=== PATIENT | male | born 1960 | race Caucasian/White ===

== ENCOUNTER → 2018-04-04 09:06 | Outpatient (CLI) | payer BC, SELFPAY ==
[2018-04-04 12:10] LABS: Absolute Lymphocyte Count 2.37 X10^3/ul (0.83-4.51); Basophil# 0.03 X10^3/uL; Basophil% 0.4 % (0-1); Eosinophil# 0.14 X10^3/uL; Eosinophils% 1.9 % (0-5); Hematocrit 46.3 % (40-54); Hemoglobin 15.9 g/dl (13.0-16.5); Lymphocyte # 2.37 X10^3/ul (4.0); Lymphocyte % 32.6 % (19-41); Mean Corp Hgb Conc 34.3 g/gl (32-36); Mean Corpuscular Hgb 31.1 pg (27.0-32.0); Mean Corpuscular Volume 90.4 fL (80-94); Mean Platelet Vol. 11.2 fl (6.2-12.0); Monocyte# 0.75 X10^3/uL; Monocyte% 10.3 % (0-10); Neutrophil # 3.97 X10^3/uL (2.7-7.7); Neutrophil % 54.7 % (47-70); Platelet Count 211 K/mm3 (150-450); RBC Distribution Width CV 13.4 % (11.6-14.6); RBC Distribution Width SD 44.3 fl (35.1-43.9); Red Blood Count 5.12 M/mm3 (4.6-6.2); White Blood Count 7.3 K/mm3 (4.4-11.0)
[2018-04-04 12:15] LABS: POSITIVE COUNT NO; POSITIVE DIFFERENTIAL NO; POSITIVE MORPHOLOGY NO
[2018-04-04 12:33] LABS: AST(SGOT) 23 U/L (15-37); Alanine Aminotransfer ALT/SGPT 41 U/L (16-61); Albumin, Serum 3.6 g/dL (3.2-5.0); Alkaline Phosphatase 66 U/L (45-117); Anion Gap 10 (5-15); BUN 14 mg/dL (7-18); BUN/Creat Ratio 12.6 RATIO (10-20); Calcium,Total 8.1 mg/dL (8.5-10.1); Chloride 108 mmol/L (98-107); Cholesterol 190 mg/dL (200); Creatinine, Serum 1.11 mg/dL (0.70-1.30); EST Glomerular Filtration Rate 72 mL/min (>60); Est Glom Filt Rate - Afr Amer 87 mL/min (>60); Globulin 3.7 g/dL (2.2-4.2); Glucose 96 mg/dL (74-106); High Density Lipoprotein 46 mg/dL; PSA,Total - Annual Screen 3.98 ng/mL (0.00-4.00); Potassium 4.2 mmol/L (3.5-5.1); Protein, Total 7.3 g/dL (6.4-8.2); Sodium Level 140 mmol/L (136-145); Triglycerides 127 mg/dL; Very Low Density Lipoprotein 25 mg/dL (5-40)
== END ==
PROVIDERS: Family Provider Family Medicine; PCP Family Medicine; Visit Provider Family Medicine
DX: Z00.00 Encounter for general adult medical examination without abnormal findings (principal); E66.9 Obesity, unspecified; R00.9 Unspecified abnormalities of heart beat; R03.0 Elevated blood-pressure reading, without diagnosis of hypertension
CPT/HCPCS: 36415; 80053; 80061; 84153; 85025; G0103

== ENCOUNTER 2018-04-25 06:55 | Day surgery (SDC) | payer BC, SELFPAY ==
--- NOTE | 2018-04-25 | COLBX_PTH ---
PATIENT: GUTIERREZ COLON LOC: EN U#:[id number] AGE/SX: 58/M ROOM: RE04/25/[address]: Dr. Argenis Ayers MD : [id number] BED: DIS: 04/25/2018 SPEC #: [id number] RECD: 04/25/18 11:33 STATUS: JAZMINE STEPHANY #: [id number] JANE: 04/25/18 00:[address]: Argenis Ayers DEPT: SURGICAL PATHOLOGY RECD BY: Daryon Turcios ENTERED: 04/28/18 11:33 SP TYPE: COLON BX OT DR: Dr. Atilio Morales MD Tissues: A - Transverse colon B - Sigmoid colon biopsy Procedures: Surgery Specimen Level IV HEADER OPERATION: Colonoscopy with polypectomy PRE-OP DIAGNOSIS: Screening TISSUE SUBMITTED: A ? Distal transverse polyp, B ? Sigmoid polyp biopsy MICROSCOPIC DIAGNOSIS A. Distal transverse colon polyp, biopsy: Tubular adenoma. B. Sigmoid colon polyp, biopsy: Hyperplastic polyp. AM:suzan 04/29/18 MICROSCOPIC DESCRIPTION Slides are reviewed. GROSS DESCRIPTION A - Received in fixative is one container labeled with the patient's name and designated transverse colon biopsy. The specimen consists of one irregular fragment of light hay soft tissue that measures 0.3 x 0.3 x 0.1 cm. The specimen is totally submitted in one cassette. B - Received in fixative is one container labeled with the patient's name and designated sigmoid colon biopsy. The specimen consists of one irregular fragment of light hay soft tissue that measures 0.3 x 0.3 x 0.1 cm. The specimen is totally submitted in one cassette. / SJ:suzan 04/25/18 TC:5 CPT: 68180 x2
--- NOTE | 2018-04-25 06:55 | DT_ITS ---
This patient was seen during an EMR downtime April 25, 2018 - May 02, 2018. This patient may have a combination of paper and electronic documentation or all paper documentation. All documentation is viewable within the e-chart portion of [facility] for each patient visit.
--- NOTE | 2018-05-03 08:19 | PCM.OPRPT ---
Report of Operation Date of Procedure: 04/25/18 Pre-Operative Diagnosis: Screening for colon cancer Post-Operative Diagnosis: Distal transverse polyp and sigmoid polyp Surgery/Procedure Performed:: Colonoscopy with snare polypectomy Type of Anesthesia:: MAC Anesthesiologist: Xavier Valdez Specimen's removed: 1. Distal transverse polyp, 2. Sigmoid polyp Estimated Blood Loss (mL): Minimal Description of Procedure: Procedure: Colonoscopy After reviewing the risks benefits, the patient was deemed in satisfactory condition to undergo procedure. After obtaining informed consent, the scope was passed under direct visualization. Throughout the procedure, the patient's blood pressure pulse and position saturations were monitored continuously anesthesia. The colonoscope was introduced through the anus and advanced to the cecum, identified by the appendiceal orifice, IC valve and transillumination. The colonoscopy was performed without difficulty. The patient tolerated procedure well. Quality of bowel prep was good. Findings: The perianal and digital rectal exam were normal. Small distal transverse and sigmoid polyps were found. The distal transverse polyp was removed with snare polypectomy and the sigmoid polyps removed with cold forceps. Otherwise the colon (entire examined portion) appeared normal. Retroflexed view of the distal rectum and anal verge was normal and showed no anal or rectal abnormalities Impression: 1. Small distal transverse and sigmoid polyps. Biopsied 2. The distal rectal and anal verge were normal on retroflexed view. Recommendations: Await biopsies Repeat colonoscopy in 3-5 years for screening purposes depending on biopsies - Complications none
== END 2018-04-25 09:15 | disposition home or self-care (01) ==
PROVIDERS: Family Provider Family Medicine; PCP Family Medicine; Visit Provider Surgery
PROC: 0DJD8ZZ Inspection of Lower Intestinal Tract, Via Natural or Artificial Opening Endoscopic (ICD-10-PCS; CPT 45378; principal; 2018-04-25 07:55)
DX: Z12.11 Encounter for screening for malignant neoplasm of colon (principal); D12.3 Benign neoplasm of transverse colon; K63.5 Polyp of colon; M19.042 Primary osteoarthritis, left hand; M19.041 Primary osteoarthritis, right hand; Z87.891 Personal history of nicotine dependence
CPT/HCPCS: 45380; 88305; J7120

== ENCOUNTER 2018-12-31 11:43 | Inpatient (IN) | payer OTHER, SELFPAY ==
[2018-12-31] VITALS (25 sets, daily range): BP systolic 109–204; BP diastolic 65–107; PULSE 55–82; RESP 10–21; TEMP 36.3–36.8; O2SAT 94–98; BMI 34.4; BMI 33.7
--- NOTE | 2018-12-31 11:58 | EKG12_ITS ---
Test Reason : POST PCI Blood Pressure : / mmHG Vent. Rate : 077 BPM Atrial Rate : 077 BPM P-R Int : 172 ms QRS Dur : 090 ms QT Int : 394 ms P-R-T Axes : 052 030 031 degrees QTc Int : 445 ms Normal sinus rhythm Nonspecific ST abnormality Abnormal ECG When compared with ECG of 31-DEC-2018 12:43, MANUAL COMPARISON REQUIRED, DATA IS UNCONFIRMED Confirmed by SANDER LEMA, SEVERINO ([id number]), editorial assistant ETTA MORALEZ ([id number]) on 01/05/2019 1:06:27 PM Referred By: Pastora Pascal Confirmed By:SEVERINO BOUCHER MD
--- NOTE | 2018-12-31 11:58 | RAD_ITS ---
STUDY: X-RAY CHEST REASON FOR EXAM: Male, 58 years old. Chest pain TECHNIQUE: Single frontal view COMPARISON: None. FINDINGS: The lungs are clear and expanded. There is no demonstrated pleural abnormality. Cardiomegaly. Normal mediastinum and jose m. Normal visualized pulmonary arteries. Normal visualized aortic arch and descending thoracic aorta. Degenerative changes of the thoracic spine. Normal visualized ribs, clavicles, and shoulders. There is no demonstrated abnormality of the visualized soft tissue structures of the upper abdomen. RAD/Chest 1 View (Portable) IMPRESSION: Cardiomegaly. Electronically Signed: Emmanuel Younger DO at 12:30 EST Tel [phone], Service support ,
[2018-12-31] MEDS: Aspirin 81 MG TAB.CHEW 324 MG PO (12:15)
[2018-12-31 12:27] LABS: Absolute Lymphocyte Count 1.86 X10^3/ul (0.83-4.51); Basophil# 0.02 X10^3/uL; Basophil% 0.3 % (0-1); Eosinophil# 0.07 X10^3/uL; Eosinophils% 1.1 % (0-5); Hematocrit 49.7 % (40-54); Hemoglobin 16.8 g/dl (13.0-16.5); Lymphocyte # 1.86 X10^3/ul (4.0); Lymphocyte % 28.7 % (19-41); Mean Corp Hgb Conc 33.8 g/gl (32-36); Mean Corpuscular Hgb 30.6 pg (27.0-32.0); Mean Corpuscular Volume 90.5 fL (80-94); Mean Platelet Vol. 10.4 fl (6.2-12.0); Monocyte# 0.52 X10^3/uL; Neutrophil # 3.97 X10^3/uL (2.7-7.7); Neutrophil % 61.4 % (47-70); Platelet Count 208 K/mm3 (150-450); RBC Distribution Width CV 12.9 % (11.6-14.6); RBC Distribution Width SD 42.7 fl (35.1-43.9); Red Blood Count 5.49 M/mm3 (4.6-6.2); White Blood Count 6.5 K/mm3 (4.4-11.0)
[2018-12-31 12:28] LABS: POSITIVE COUNT NO; POSITIVE DIFFERENTIAL NO; POSITIVE MORPHOLOGY NO
[2018-12-31 12:36] LABS: Anion Gap 7 (5-15); BUN 18 mg/dL (7-18); BUN/Creat Ratio 16.7 RATIO (10-20); Calcium,Total 8.5 mg/dL (8.5-10.1); Chloride 105 mmol/L (98-107); Creatinine, Serum 1.08 mg/dL (0.70-1.30); EST Glomerular Filtration Rate 74 mL/min (>60); Est Glom Filt Rate - Afr Amer 90 mL/min (>60); Glucose 149 mg/dL (74-106); Potassium 4.2 mmol/L (3.5-5.1); Sodium Level 138 mmol/L (136-145)
--- NOTE | 2018-12-31 12:37 | ED.VISSUMM ---
- ER Visit Summary Date of Service: 12/31/18 Chief Complaint: Chest pain History of Present Illness: The patient is a 58 M who presents with chest pain. Started last night and was worse this morning. He describes an achiness in his left chest. It did get worse with exertion this morning. He denies shortness of breath. He did have some nausea. This pain does radiate to the left arm. He denies any leg swelling he has no history of cardiac issues in the past. He had a stress test many years ago. He has hypertension but no other cardiac risk factors. He is unsure of his family history because he is adopted. Physical Examination: Vital signs reviewed. HEENT exam unremarkable. Heart is regular rate and rhythm without murmurs. Lungs are clear to auscultation. Abdomen is soft and nontender. Extremities reveal no edema. Peripheral pulses are equal. Skin exam normal. Neurologic exam normal. Test Results: First EKG showed a sinus rhythm with rate of 73. He had mild ST depressions inferior laterally. Hemoglobin 16.8. Glucose 148. Troponin 0 0.058. Chest x-ray reveals cardiomegaly Emergency Department Course and Treatment: The patient was given some lingual nitroglycerin as well as aspirin. His pain was improved with the nitroglycerin but it returned and was worse. A repeat EKG reveals more ST depressions inferior laterally with some slight elevation of aVR. At this point I started the patient on a nitroglycerin drip. I discussed with the [employer] rep, Dr. bell. He came to the emergency department and evaluated the patient and EKG. He would like to take the patient to the Loss Prevention Operations Manager for intervention. Patient was given IV bolus of heparin. He held the Brilinta. The patient was admitted to the hospitalist, likely to the ICU because he will likely need a stent placed. Treatment Plan: [] Disposition: Admit Impression: NSTEMI, chest pain, elevated troponin This note was generated with [employer] dictation software. It may contain incorrect words, spelling, and punctuation that were not noted in review of the chart prior to signing ED Disposition - Plan for ED Patient: Referrals: Atilio Morales MD [Primary Care Provider] -
--- NOTE | 2018-12-31 12:39 | EKG12_ITS ---
Test Reason : CP Blood Pressure : / mmHG Vent. Rate : 057 BPM Atrial Rate : 057 BPM P-R Int : 168 ms QRS Dur : 092 ms QT Int : 410 ms P-R-T Axes : 051 012 -20 degrees QTc Int : 399 ms Sinus bradycardia Marked ST abnormality, possible inferior subendocardial injury Marked ST abnormality, possible anterior subendocardial injury Abnormal ECG Confirmed by SANDER LEMA, SEVERINO ([id number]), health editor ETTA MORALEZ ([id number]) on 01/03/2019 8:27:08 AM Referred By: Pastora Pascal Confirmed By:SEVERINO BOUCHER MD
[2018-12-31] MEDS: Morphine 4 MG/ML Syringe IV (12:43)
[2018-12-31] MEDS: Ondansetron 4 MG/2 ML Vial IV (12:43)
[2018-12-31] MEDS: Heparin Injection (Vial) 5,000 UNIT/ML VIAL 4000 UNIT IV (12:54)
--- NOTE | 2018-12-31 14:55 | HP.PCM_ITS ---
Problem List (1) Multivessel coronary artery disease Status: Acute (2) Unstable angina Status: Acute History of Present Illness Date of Admission: 12/31/18 Chief Complaint: Chest pain. The patient is a 58 year old M with no significant past medical history presented to the emergency room because of chest pain. Symptoms started last night around 9 PM after he ate his dinner with left-sided chest pain, above his left breast, dull aching pain, 8 out of 10 in severity, radiates to the left arm, aggravated by movement and without relieving factors. He denied associated shortness of breath, dizziness, diaphoresis, nausea or vomiting. Last night, he was able to sleep but he woke up this morning with more severe pain, on the same side, dull aching pain, 10 out of 10 in severity, more prolonged than last night and associated with nausea, relieved with nitroglycerin that he received in the ED and without aggravating factor. He came to the emergency room, his pain got worse and he was diaphoretic, nauseous and he vomited once. In the emergency department, initial blood pressure was elevated, other vital signs were stable. Routine blood work was remarkable for glucose of 149, otherwise normal. Chest x-ray revealed myocardial, otherwise normal. Initial EKG in the ER revealed normal sinus rhythm with ST segment depression in leads V3, V4, V5 and V6. Repeat EKG after patient reported worsening chest pain revealed sinus bradycardia, and T wave inversion in leads II, III, V3, V4, V5 and V6. STEMI alert called and patient was taken for emergent cardiac catheterization with PCI/LEXY. He was found to have multivessel disease versus left main coronary artery disease. He is being admitted for unstable angina, found to have multivessel coronary artery disease. Past Medical History Allergies No Known Allergies Allergy (Verified 04/20/18 11:26) Home Medications: Ambulatory Orders Medication Instructions Recorded NK 12/31/18 Surgical History: herniorrhaphy Psychiatric History: No pertinent psych hx Lives: Spouse/ Significant Other Smoking Status: Never smoker Alcohol: Occasional Drugs: None - *Family History Maternal History Items: - - He is adopted, unknown family history. Paternal History Items: - - He is adopted, unknown family history. Review of Systems Constitutional: Denies: Anorexia, Chills, Fever, Weakness Eyes: Denies: Blurred vision, Double vision, Drainage, Redness HEENT: Denies: Difficulty Hearing, Ear Pain, Eye Pain, Nasal Congestion, Sore Throat Cardiovascular: Reports: Chest Pain. Denies: Chest Tightness, Edema, Heaviness, Light Headedness, Palpitations, Syncope Respiratory: Denies: Cough, Pleuritic Pain, Shortness of Breath, Sputum production, Wheezing Gastrointestinal: Reports: Nausea, Vomiting. Denies: Abdominal Pain, Constipation, Diarrhea Genitourinary: Denies: Dysuria, Frequency, Hematuria Musculoskeletal: Denies: Arm Pain, Back Pain, Foot Pain Skin: Denies: Dryness, Rash Neurological: Denies: Balance problems, Double vision, Change in Speech, Slurred speech, Confusion, Headaches, Incoordination Psychiatric: Denies: Anxiety, Depression VTE Information - Inpt Only VTE Present on Admission: No VTE Mechan Device Prophylaxis: None VTE Pharm Prophylaxis ordered?: No Patient Problems: Active and Suspected Problems Hypertensive emergency (Acute) Multivessel coronary artery disease (Acute) Unstable angina (Acute) - Physical Exam General: Alert, Oriented x3, Cooperative, No apparent distress HEENT: Atraumatic, PERRLA, EOMI, Normocephalic Oral: Moist Mucosa, No Gingival or Mucosal Lesions/ Ulcerations Neck: Supple, No JVD, Negative Carotid Bruits, Trachea Midline, Thyroid Normal Size and Texture Lungs: Clear to auscultation, Normal air movement, No rhonchi, No wheeze, No rales Cardiovascular: Regular rate, Regular Rhythm, Normal S1, Normal S2, No murmurs Abdomen: Bowel Sounds Present, Soft, Non Tender, Non-Distended, No Hepato- splenomegaly Extremities: No clubbing, No cyanosis, No edema Skin: No rashes, No breakdown Lymphatic: No Cervical, Supraclavicular, or Inguinal Adenopathy Neurological: Cranial nerves II-XII grossly intact, Motor Exam 5/5 strength throughout Psych/Mental Status: Normal Affect, Appropriate, Alert and oriented to time, place, person, mood and affect Vital Signs Temp Pulse Resp BP Pulse Ox 97.4 F L 66 10 L 166/95 H 98 12/31/18 11:44 12/31/18 13:00 12/31/18 13:00 12/31/18 13:00 12/31/18 13:00 Oxygen Flow Rate (L/min) 2 Oxygen Delivery Method Nasal Cannula Weight: 240 lb 8.389 oz Body Mass Index (BMI) 34.4 Laboratory Tests Past 24 Hrs 12/31/18 12/31/18 12:05 12:05 WBC 6.5 RBC 5.49 Hgb 16.8 H Hct 49.7 MCV 90.5 MCH 30.6 MCHC 33.8 RDW 12.9 RDW Differential 42.7 Plt Count 208 MPV 10.4 Immature Gran % (Auto) 0.500 Neut % (Auto) 61.4 Lymph % (Auto) 28.7 Mcmullen % (Auto) 8.0 Eos % (Auto) 1.1 Baso % (Auto) 0.3 Absolute Neuts (auto) 4.0 Absolute Lymphs (auto) 1.86 Total Counted Not Reportable Sodium 138 Potassium 4.2 Chloride 105 Carbon Dioxide 26.0 Anion Gap 7 BUN 18 Creatinine 1.08 Estim Creat Clear Calc 75.10 Est GFR (MDRD) Af Amer 90 Est GFR (MDRD) Non-Af 74 BUN/Creatinine Ratio 16.7 Glucose 149 H Calcium 8.5 Troponin I 0.058 H Clinical Impression(s) from Imaging Studies Chest X-Ray 12/31/18 11:58 IMPRESSION: Cardiomegaly. Electronically Signed: Emmanuel Younger DO at 12:30 EST Tel [phone], Service support , Assessment/Plan All Active Problems Hypertensive emergency (Acute) Multivessel coronary artery disease (Acute) Unstable angina (Acute) This is a 58 years old male patient with no significant past medical history presented to the emergency room because of chest pain, found to have EKG changes and borderline elevated troponin consistent with unstable angina, underwent emergent cardiac catheterization and was found to have multivessel disease, underwent PCI/LEXY as mentioned below. #1 unstable angina/acute coronary syndrome/multivessel disease: EKG reviewed as above, troponin is borderline elevated. Status post emergent cardiac catheterization, found to have 99% occlusion of the first diagonal branch, 80% occlusion of the proximal mid LAD, had drug eluting stent to diagonal branch, drug-eluting stent to LAD. Also, found to have 80% lesion in the RCA, planned for staged intervention. At this time, blood pressure improved. Other vital signs are stable. Plan: Admit to ICU, cardiac monitoring, serial cardiac enzymes, repeat EKG tomorrow morning, start baby aspirin, Lipitor, Coreg, Conchis linta twice daily, cardiology consult, IV fluids, repeat BMP and CBC tomorrow morning. #2 hypertensive emergency: Upon arrival to ER, blood pressure was highly elevated, it was 204/107 with evidence of endorgan damage which is the unstable angina and this is consistent with hypertensive emergency. Patient was started on IV nitroglycerin drip in the ED, blood pressure improved. Plan to monitor, start Coreg twice daily. #3 hyperglycemia: Blood sugar is 149, no history of diabetes. Plan for lipid profile, hemoglobin A 1C. #4 DVT prophylaxis: SCDs. Code Visit Inpatient E&M: 72999 Init Hosp L3
--- NOTE | 2018-12-31 15:17 | PCM.CONS.C ---
Reason for Consult Date of Consultation: 12/31/18 History of Present Illness: The patient is a 58 year old M with no significant past medical history. According to him, he started having anterior chest pain last night. It was unremitting. He went to sleep with it. When he woke up he started having chest pain again. It really became worse this morning and he decided to come to the emergency room. In the emergency room, his pain got worse. He got diaphoretic and nauseous. He vomited once. Patient was given morphine sublingual nitroglycerin and was started on nitro infusion. However his pain failed to improve. Patient denies any previous history of angina pectoris either at rest or with exertion. Denies any shortness of breath. No palpitations. No orthopnea or PND. No syncope or presyncope. [] Patient does not know anything about his family history as he was adopted Past Medical History Allergies/Adverse Reactions: Allergies No Known Allergies Allergy (Verified 04/20/18 11:26) Home Medications: Ambulatory Orders Medication Instructions Recorded NK 12/31/18 Smoking Status: Never smoker Review of Systems - Review of Systems General: Denies: Fever, Chills HEENT: Denies: Head Aches Cardiovascular: Reports: Chest Discomfort, Chest Discomfort at Rest. Denies: Orthopnea, PND, Palpitations, Dizziness, Near Syncope, Syncope Respiratory: Denies: Cough, Hemoptysis Gastrointestinal: Reports: Nausea, Emesis. Denies: Abdominal Discomfort, Jaundice, Hematemesis, Melena Neurological: Denies: History of TIA, History of CVA Endocrine: Denies: Heat Intolerance, Cold Intolerance Hematologic/ Lymphatic: Denies: Easy Brusing, Easy Bleeding Subjectve: Appears acutely distressed Objective: Vital Signs Temp Pulse Resp BP Pulse Ox 97.4 F L 66 10 L 166/95 H 98 12/31/18 11:44 12/31/18 13:00 12/31/18 13:00 12/31/18 13:00 12/31/18 13:00 Oxygen Flow Rate (L/min) 2 Oxygen Delivery Method Nasal Cannula Weight: 109.1 kg Body Mass Index (BMI) 34.4 General: Awake, Alert, Oriented x 3, Cooperative, In Acute Distress HEENT: Atraumatic, Normocephalic Oral: Moist Mucosa Neck: Supple, No JVD Lungs: Clear to auscultation Cardiovascular: Regular Rhythm, Normal S1, Normal S2 Abdomen: Bowel Sounds Present, Soft Extremities: No edema Neurological: No Focal Motor or Sensory Deficit Psych/Mental Status: Appropriate 12/31/18 12:05: WBC 6.5, RBC 5.49, Hgb 16.8 H, Hct 49.7, MCV 90.5, MCH 30.6, MCHC 33.8, RDW 12.9, RDW Differential 42.7, Plt Count 208, MPV 10.4, Immature Gran % (Auto) 0.500, Neut % (Auto) 61.4, Lymph % (Auto) 28.7, Potter % (Auto) 8.0, Eos % (Auto) 1.1, Baso % (Auto) 0.3, Absolute Neuts (auto) 4.0, Total Counted Not Reportable 12/31/18 12:05: Sodium 138, Potassium 4.2, Chloride 105, Carbon Dioxide 26.0, Anion Gap 7, BUN 18, Creatinine 1.08, Est GFR (MDRD) Af Amer 90, Est GFR (MDRD) Non-Af 74, BUN/Creatinine Ratio 16.7, Glucose 149 H, Calcium 8.5, Troponin I 0.058 H Rhythm: Normal sinus rhythm EKG: EKG showed normal sinus rhythm. ST depressions were noted in inferior and anterior leads consistent with ischemia. ST elevation in aVR. ECHO: Stress Test: Cardiac Cath: PCI: CT Surgery: Holter monitor: EPS: PPM: CXR: Chest CT Scan: Assessment/Plan 1. Unstable angina pectoris/acute coronary syndrome. The patient had diffuse ST depressions with ST elevation in aVR. This was concerning for multivessel disease versus left main. As his symptoms were unremitting despite medications, it was recommended that he undergo emergent cardiac catheterization with coronary angiography and possible revascularization. Risks benefits were explained to him. He understood those and wished to proceed. Coronary angiography revealed severe triple-vessel disease. The culprit vessel was identified as the first diagonal branch which had about 99% occlusion with TIARA I flow. The prox/mid LAD was also noted to have about 80% occlusion. Emergent revascularization was performed to the diagonal branch with placement of a2.25.25 x 18 mm resolute drug-eluting stent. Postdilated using a 2.5 mm balloon. The LAD lesion was treated with a 2.5 x 22 mm resolute drug-eluting stent. Excellent results were noted. Patient's symptoms promptly resolved. Patient also had about 95% distal left circumflex disease. This was treated using a 2.25 x 14 mm resolute drug-eluting stent. 2. Coronary artery disease. See #1 above. Started on aspirin and loaded with ticagrelor. Continue. Start on low-dose beta-blockers. Nitrates. Patient has about 80% lesion in his right coronary artery. Plan for staged intervention. 3. Check lipid profile. Start on statins. 4. Overall LV systolic function is estimated to be about 35%. Will check an echocardiogram. Start on SHO inhibitors.
[2018-12-31 16:05] LABS: Thyroid Stim Hormone (TSH) 1.19 uIU/mL (0.358-3.74)
[2018-12-31] MEDS: 0.9% Normal Saline 1,000 ML 75 ML IV (16:13)
[2018-12-31 16:20] LABS: Hemoglobin A1c 5.9 % (4.2-6.3)
--- NOTE | 2018-12-31 16:45 | EKG12_ITS ---
Test Reason : CP Blood Pressure : / mmHG Vent. Rate : 073 BPM Atrial Rate : 073 BPM P-R Int : 182 ms QRS Dur : 096 ms QT Int : 392 ms P-R-T Axes : 050 021 -12 degrees QTc Int : 431 ms Normal sinus rhythm ST & T wave abnormality, consider inferior ischemia Abnormal ECG Confirmed by SANDER LEMA, SEVERINO ([id number]), editor in chief newspaper ETTA MORALEZ ([id number]) on 01/03/2019 8:26:49 AM Referred By: Pastora Pascal Confirmed By:SEVERINO BOUCHER MD
[2018-12-31 16:57] LABS: ACT Activated Clotting Time 164 sec (74-137)
[2018-12-31 16:57] LABS: ACT Activated Clotting Time 357 sec (74-137)
--- NOTE | 2018-12-31 17:23 | CL.I_ITS ---
Patient Name: GUTIERREZ COLON Study Date: 12/31/2018 Performing: Pastora Pascal MD Ht: 70.08 inches 178 cm : 1960 Wt: 240.3 lbs 109 kg Age: 58 Gender: male BSA: 2.26 PROCEDURE(S) PERFORMED [id number]-DVI/COR/LV [id number] W OR WO PTCA, SINGLE CORONARY ARTERY [id number] W OR WO PTCA, EACH ADD'L ARTERY, SAME MAJOR [id number] W OR WO PTCA, SINGLE CORONARY ARTERY CLINICAL PROFILE AND CO-MORBIDITIES Heart Failure: None Angina Classification Anginal Classification w/in 2 Weeks: CCS IV CAD Presentations: Unstable angina. CONCLUSIONS Subtotal Prox D1 with TIARA I flow 80% Prox LAD 50% ostial LCX, 95% distal LCX 90% prox OM1. Small caliber vessel 80% Prox RCA LVEF 35-40% Successful PTCA/LEXY Prox D1 using Resolute Integrity 2.25x18 mm, post-dilated using 2.5 mm balloon Successful LEXY distal LCX using Resolute Integrity 2.25x14 mm RECOMMENDATIONS ASA Indefinitley Brilinta for at least 12 months Staged intervention to Prox RCA DESCRIPTION OF PROCEDURE The patient arrived to the procedure lab. The risks and benefits of the procedure as well as a full d escription of our services here and lack of surgical backup were fully explained to the patient and/o r their significant other prior to the catheterization. The Timeout was completed, verifying the ela ect patient and procedure. The patient's procedural site was prepped and draped in the usual fashion. Local anesthetic was given subcutaneously to right radial region with Lidocaine 2%. Using a modified Seldinger technique, arterial access was obtained via the right radial artery, a 6Fr sheath was inse rted.. Left Coronary Artery selective angiography was performed in multiple views using a 5 Fr. 4.0 [place] catheter. Right Coronary Artery selective angiography was then performed in multiple views usin g a 5 Fr. 3DRC (Bebeto) catheter. Left Ventriculography was performed in CHO projection using a 5 F r. Pigtail catheter. LV to AO pullback pressures were then recorded xb 3 Guide catheter was inserted and engaged into the RCA. runthrough Guide wire was advanced to the RCA. xb 2.5 Guide catheter was inserted and engaged into the RCA. emerge 2.00 x 15 Balloon cathet er was advanced across lesion in the first diagonal, ostial. PTCA balloon inflated at 6 atms for 10 s ecs. PTCA balloon inflated at 6 atms for 4 secs. PTCA balloon inflated at 6 atms for 14 secs. Angiogr am performed post balloon dilatation. runthrough Guide wire was advanced to the LAD. resolute 2.25x 1 8 Drug Eluting stent was advanced across the lesion in the first diagonal, ostial. Angiogram performe d post stent deployment. nc Balloon catheter was inserted post stent. Angiogram performed post balloo n dilatation. emerge push 1.5 x 15 Balloon catheter was advanced across lesion in the LAD, mid. PTCA balloon inflated at 14 atms for 23 secs. PTCA balloon inflated at 14 atms for 12 secs. PTCA balloon i nflated at 14 atms for 11 secs. emerge 2.5 x 15 Balloon catheter was advanced across lesion in the LAD, mid. PTCA balloon inflated at 6 atms for 24 secs. resolute 2.5 x 22 Drug Eluting s tent was advanced across the lesion in the LAD, mid. Angiogram performed post stent deployment. nc em erge 2.5 x 15 Balloon catheter was inserted post stent to the mid lad Angiogram performed post balloo n dilatation. runthrough Guide wire was repositioned to the Circumflex resolute 2.25 x 14 Drug Elutin g stent was advanced across the lesion in the circumflex, distal. nc emerge 2.25 x 12 Balloon cathete r was inserted post stent distal circ Angiogram performed post balloon dilatation. The arterial she ath was pulled and a TR Band was applied for hemostasis CORONARY ANGIOGRAPHY DOMINANCE: Right Dominant LEFT HEART ASSESSMENT Left Ventricular Ejection Fraction: by LV Gram 35 % LVEDP: 17 mmHg Anterior Hypokinesis - Severe LEFT MAIN: Calcified but no significant lesions LEFT ANTERIOR DECENDING ARTERY: 80% Mid. Prox D1 subtotal with TIARA I flow CIRCUMFLEX ARTERY: 50% Prox. 95% distal. Prox OM1 small diameter 2 mm vessel. 90% Prox RIGHT CORONARY ARTERY: 80% Prox INTERVENTION INFORMATION LESION SITE: 1st Diagonal (Ostial) Lesion Complexity: High/C, thrombus present: Yes, culprit lesion: Yes Pre Stenosis: 99 % Pre intervention TIARA flow: 1 PROCEDURE: Drug Eluting Stent with pre and post dilatation Post Stenosis: 0 % Post intervention TIARA flow: 3 Lesion Devices: Carlin Sci EMERGE MR 2.00x15 BALLOON Medtronic Resolute RX LEXY 2.25x18 Carlin Sci NC EMERGE MR 2.50x15 BALLOON Carlin Sci EMERGE MR 2.50x15 BALLOON LESION SITE: LAD (Mid) Lesion Complexity: High/C, Lesion Complexity: High/C, thrombus present: No, culprit lesion: No Pre Stenosis: 80 % Pre intervention TIARA flow: 3 PROCEDURE: Drug Eluting Stent with pre and post dilatation Post Stenosis: 0 % Post intervention TIARA flow: 3 Lesion Devices: Terumo .014 Runthrough Extra Floppy 180cm straight Carlin Sci EMERGE PUSH MR 1.50x15 BALLOON Medtronic Resolute RX LEXY 2.5x22 LESION SITE: Circumflex (Distal) Lesion Complexity: Non-High/Non-C, culprit lesion: No Pre Stenosis: 90 % Pre intervention TIARA flow: 3 PROCEDURE: Drug Eluting Stent with post dilatation 0 % Post intervention TIARA flow: 3 Lesion Devices: Medtronic Resolute RX LEXY 2.25x14 Carlin Sci NC EMERGE MR 2.25x12 BALLOON COMPLICATIONS No Complications PROCEDURE MEDICATIONS Fentanyl 50 mcg IV Vistaril 1 mg IV Fentanyl 50 mcg IV Oxygen: 2 L/min via nasal cannula Angiomax 16.5 ml's bolus 12/31/2018 13:35:55 Angiomax 38.2 ml's/hr infusing 12/31/2018 13:39:07 Brilinta 180 mg PO @ 12/31/2018 13:46:55 Nitro 200 mcg IC 12/31/2018 14:31:06 Nitro 200 mcg IC 12/31/2018 14:31:06 Verapamil 2.5mg, Ntg 100mcgs, given IA 12/31/2018 13:28:41 SUMMARY OF HEMODYNAMIC DATA Time AIR REST ECG 13:21:03 AO 153/77 (110) SA 13:29:19 LV 169/12, 26 13:36:39 LV 163/13, 26 13:36:45 LV 134/0, 13 14:52:53 LV 129/4, 17 14:53:00 LV 137/13, 24 14:53:59 LV 121/11, 21 14:54:05 LVp 137/9, 21 14:54:12 AOp 133/71 (97) 14:54:17 Signed By Pastora Pascal MD On 12/31/2018 17:34:55 Signed By Pastora Pascal MD On 12/31/2018 17:21:45 Pastora Pascal MD
[2018-12-31] MEDS: Isosorbide Mononitrate 60 MG Tablet PO (18:36)
[2018-12-31] MEDS: Atorvastatin Calcium 40 MG Tablet PO (21:45)
[2018-12-31] MEDS: Carvedilol 3.125 MG TABLET PO (21:45)
[2018-12-31] MEDS: TICAGRELOR 90 MG TABLET PO (21:46)
[2018-12-31 23:22] LABS: Magnesium 1.7 mg/dL (1.6-2.6)
[2019-01-01] VITALS (21 sets, daily range): BP systolic 83–124; BP diastolic 48–75; PULSE 53–70; RESP 11–18; TEMP 36.6–36.9; O2SAT 93–97
[2019-01-01] MEDS: Acetaminophen 325 MG Tablet 650 MG PO ×2 (01:51→17:58)
[2019-01-01 04:49] LABS: Absolute Lymphocyte Count 2.42 X10^3/ul (0.83-4.51); Absolute Neutrophil Count 7.7 X10^3/uL (2.0-7.7); Basophil# 0.02 X10^3/uL; Basophil% 0.2 % (0-1); Eosinophil# 0.11 X10^3/uL; Hemoglobin 14.7 g/dl (13.0-16.5); Lymphocyte # 2.42 X10^3/ul (4.0); Lymphocyte % 21.1 % (19-41); Mean Corp Hgb Conc 33.4 g/gl (32-36); Mean Corpuscular Hgb 30.6 pg (27.0-32.0); Mean Corpuscular Volume 91.5 fL (80-94); Mean Platelet Vol. 10.4 fl (6.2-12.0); Monocyte% 10.4 % (0-10); Neutrophil # 7.71 X10^3/uL (2.7-7.7); Platelet Count 201 K/mm3 (150-450); RBC Distribution Width CV 13.4 % (11.6-14.6); RBC Distribution Width SD 44.1 fl (35.1-43.9); Red Blood Count 4.81 M/mm3 (4.6-6.2); White Blood Count 11.5 K/mm3 (4.4-11.0)
[2019-01-01 05:00] LABS: POSITIVE COUNT NO; POSITIVE DIFFERENTIAL NO; POSITIVE MORPHOLOGY NO
[2019-01-01 05:05] LABS: AST(SGOT) 39 U/L (15-37); Alanine Aminotransfer ALT/SGPT 33 U/L (16-61); Albumin, Serum 3.1 g/dL (3.2-5.0); Alkaline Phosphatase 62 U/L (45-117); Anion Gap 10 (5-15); BUN 15 mg/dL (7-18); BUN/Creat Ratio 15.2 RATIO (10-20); Calcium,Total 7.8 mg/dL (8.5-10.1); Chloride 106 mmol/L (98-107); Cholesterol 173 mg/dL (200); Creatinine, Serum 0.99 mg/dL (0.70-1.30); EST Glomerular Filtration Rate 82 mL/min (>60); Est Glom Filt Rate - Afr Amer 99 mL/min (>60); Estimated Creatinine Clearance 81.93 ml/min; Globulin 3.1 g/dL (2.2-4.2); Glucose 102 mg/dL (74-106); High Density Lipoprotein 45 mg/dL; Potassium 4.3 mmol/L (3.5-5.1); Protein, Total 6.2 g/dL (6.4-8.2); Sodium Level 140 mmol/L (136-145); Triglycerides 151 mg/dL; Very Low Density Lipoprotein 30 mg/dL (5-40)
[2019-01-01] MEDS: Aspirin 81 MG TAB.CHEW PO (09:50)
[2019-01-01] MEDS: TICAGRELOR 90 MG TABLET PO ×2 (09:50→20:58)
[2019-01-01] MEDS: Carvedilol 3.125 MG TABLET PO ×2 (09:50→20:58)
[2019-01-01] MEDS: Lisinopril 2.5 MG Tablet PO (09:51)
[2019-01-01] MEDS: Isosorbide Mononitrate 60 MG Tablet PO (09:51)
--- NOTE | 2019-01-01 10:00 | EKG12_ITS ---
Test Reason : MORNING EKG Blood Pressure : / mmHG Vent. Rate : 053 BPM Atrial Rate : 053 BPM P-R Int : 188 ms QRS Dur : 088 ms QT Int : 462 ms P-R-T Axes : 048 059 093 degrees QTc Int : 433 ms Sinus bradycardia Otherwise normal ECG When compared with ECG of 31-DEC-2018 15:22, MANUAL COMPARISON REQUIRED, DATA IS UNCONFIRMED Confirmed by SANDER LEMA, SEVERINO ([id number]), electronic news gathering editor ETTA MORALEZ ([id number]) on 01/05/2019 12:06:22 PM Referred By: Pastora Pascal Confirmed By:SEVERINO BOUCHER MD
--- NOTE | 2019-01-01 11:50 | PN_ITS ---
Patient Problems: Active and Suspected Problems Hypertensive emergency (Acute) Multivessel coronary artery disease (Acute) Unstable angina (Acute) Subjective: Chief complaint: Follow-up after admission for unstable angina/acute coronary syndrome/multivessel CAD. Patient seen and examined. No acute events overnight. He denied any more chest pain or shortness of breath. His blood pressure has been on the lower side, asymptomatic. Other vital signs are stable. - Physical Exam General: Alert, Oriented x3, Cooperative, No apparent distress HEENT: Atraumatic, PERRLA, EOMI, Normocephalic Oral: Moist Mucosa, No Gingival or Mucosal Lesions/ Ulcerations Neck: Supple, No JVD, Negative Carotid Bruits, Trachea Midline, Thyroid Normal Size and Texture Lungs: Clear to auscultation, Normal air movement, No rhonchi, No wheeze, No rales Cardiovascular: Regular rate, Regular Rhythm, Normal S1, Normal S2, PMI Normal Abdomen: Bowel Sounds Present, Soft, Non Tender, Non-Distended, No Hepato- splenomegaly Extremities: No clubbing, No cyanosis, No edema Skin: No rashes, No breakdown Lymphatic: No Cervical, Supraclavicular, or Inguinal Adenopathy Neurological: Cranial nerves II-XII grossly intact, Neuro grossly intact Psych/Mental Status: Normal Affect, Appropriate, Alert and oriented to time, place, person, mood and affect Vital Signs Temp Pulse Resp BP Pulse Ox 97.8 F 64 17 116/69 95 01/01/19 08:00 01/01/19 11:00 01/01/19 11:00 01/01/19 11:00 01/01/19 11:00 Oxygen Flow Rate (L/min) 2 Oxygen Delivery Method Room Air Weight: 236 lb 15.951 oz Body Mass Index (BMI) 33.7 Intake and Output for Last 24 Hours 12/30/18 12/31/18 01/01/19 23:59 23:59 23:59 Intake Total 524 / 524 1577 / 1577 Output Total 400 / 400 1350 / 1350 Balance 124 / 124 227 / 227 Laboratory Tests Past 24 Hrs 12/31/18 12/31/18 12/31/18 12:05 12:05 12:05 WBC 6.5 RBC 5.49 Hgb 16.8 H Hct 49.7 MCV 90.5 MCH 30.6 MCHC 33.8 RDW 12.9 RDW Differential 42.7 Plt Count 208 MPV 10.4 Immature Gran % (Auto) 0.500 Neut % (Auto) 61.4 Lymph % (Auto) 28.7 [place] % (Auto) 8.0 Eos % (Auto) 1.1 Baso % (Auto) 0.3 Absolute Neuts (auto) 4.0 Absolute Lymphs (auto) 1.86 Total Counted Not Reportable Activated Clotting Time Sodium 138 Potassium 4.2 Chloride 105 Carbon Dioxide 26.0 Anion Gap 7 BUN 18 Creatinine 1.08 Estim Creat Clear Calc 75.10 Est GFR (MDRD) Af Amer 90 Est GFR (MDRD) Non-Af 74 BUN/Creatinine Ratio 16.7 Glucose 149 H Hemoglobin A1c 5.9 Calcium 8.5 Magnesium Total Bilirubin AST ALT Alkaline Phosphatase Troponin I 0.058 H Total Protein Albumin Globulin Albumin/Globulin Ratio Triglycerides Cholesterol LDL Cholesterol VLDL Cholesterol HDL Cholesterol TSH 12/31/18 12/31/18 12/31/18 12:05 13:29 14:59 WBC RBC Hgb Hct MCV MCH MCHC RDW RDW Differential Plt Count MPV Immature Gran % (Auto) Neut % (Auto) Lymph % (Auto) [place] % (Auto) Eos % (Auto) Baso % (Auto) Absolute Neuts (auto) Absolute Lymphs (auto) Total Counted Activated Clotting Time 164 H 357 H Sodium Potassium Chloride Carbon Dioxide Anion Gap BUN Creatinine Estim Creat Clear Calc Est GFR (MDRD) Af Amer Est GFR (MDRD) Non-Af BUN/Creatinine Ratio Glucose Hemoglobin A1c Calcium Magnesium Total Bilirubin AST ALT Alkaline Phosphatase Troponin I Total Protein Albumin Globulin Albumin/Globulin Ratio Triglycerides Cholesterol LDL Cholesterol VLDL Cholesterol HDL Cholesterol TSH 1.19 12/31/18 12/31/18 12/31/18 15:40 18:15 23:00 WBC RBC Hgb Hct MCV MCH MCHC RDW RDW Differential Plt Count MPV Immature Gran % (Auto) Neut % (Auto) Lymph % (Auto) [place] % (Auto) Eos % (Auto) Baso % (Auto) Absolute Neuts (auto) Absolute Lymphs (auto) Total Counted Activated Clotting Time Sodium Potassium Chloride Carbon Dioxide Anion Gap BUN Creatinine Estim Creat Clear Calc Est GFR (MDRD) Af Amer Est GFR (MDRD) Non-Af BUN/Creatinine Ratio Glucose Hemoglobin A1c Calcium Magnesium 1.7 Total Bilirubin AST ALT Alkaline Phosphatase Troponin I 2.590 H* 7.050 H* Total Protein Albumin Globulin Albumin/Globulin Ratio Triglycerides Cholesterol LDL Cholesterol VLDL Cholesterol HDL Cholesterol TSH 01/01/19 01/01/19 04:30 04:30 WBC 11.5 H RBC 4.81 Hgb 14.7 Hct 44.0 MCV 91.5 MCH 30.6 MCHC 33.4 RDW 13.4 RDW Differential 44.1 H Plt Count 201 MPV 10.4 Immature Gran % (Auto) 0.300 Neut % (Auto) 67.0 Lymph % (Auto) 21.1 [place] % (Auto) 10.4 H Eos % (Auto) 1.0 Baso % (Auto) 0.2 Absolute Neuts (auto) 7.7 Absolute Lymphs (auto) 2.42 Total Counted Not Reportable Activated Clotting Time Sodium 140 Potassium 4.3 Chloride 106 Carbon Dioxide 24.0 Anion Gap 10 BUN 15 Creatinine 0.99 Estim Creat Clear Calc 81.93 Est GFR (MDRD) Af Amer 99 Est GFR (MDRD) Non-Af 82 BUN/Creatinine Ratio 15.2 Glucose 102 Hemoglobin A1c Calcium 7.8 L Magnesium Total Bilirubin 1.00 AST 39 H ALT 33 Alkaline Phosphatase 62 Troponin I Total Protein 6.2 L Albumin 3.1 L Globulin 3.1 Albumin/Globulin Ratio 1.0 Triglycerides 151 Cholesterol 173 LDL Cholesterol 98 VLDL Cholesterol 30 HDL Cholesterol 45 TSH Medical Necessity - Tobacco Use Smoking Status: Never smoker Tobacco Use: Non-smoker Assessment/Plan All Active Problems Hypertensive emergency (Acute) Multivessel coronary artery disease (Acute) Unstable angina (Acute) This is a 58 years old male patient with no significant past medical history presented to the emergency room because of chest pain, found to have EKG changes and borderline elevated troponin consistent with unstable angina, underwent emergent cardiac catheterization and was found to have multivessel disease, underwent PCI/LEXY as mentioned below. #1 unstable angina/acute coronary syndrome/multivessel disease: Status post emergent cardiac catheterization, found to have 99% occlusion of the first diagonal branch, 80% occlusion of the proximal mid LAD, had drug eluting stent to diagonal branch, drug-eluting stent to LAD. Also, found to have 80% lesion in the RCA, planned for staged intervention. He is on aspirin, statins, Brilinta, Coreg, isosorbide mononitrate and lisinopril. His blood pressure has been on the lower side but he is asymptomatic. May need to cut back on nitrate. Plan: Continue same treatment, transfer to PCU. #2 hypertensive emergency: Blood pressure even in the lower side, he is on Coreg, nitrates and lisinopril. He is asymptomatic. We might need to decrease dose of nitrate to 30 mg p.o. daily. I would leave that to cardiology. #3 hyperglycemia: Blood sugar has been stable. Hemoglobin A1c was 5.9. #4 DVT prophylaxis: SCDs. This note was generated with [employer] dictation software. It may contain incorrect words, spelling, and punctuation that were not noted in checking the note before signing. Code Visit Inpatient E&M: 18668 Subs Hosp L2
--- NOTE | 2019-01-01 13:02 | PCM.PN.CARD ---
Subjectve: Patient complained of some chest and neck soreness. Different than his symptoms of yesterday. Has any shortness of breath. Sitting up in the chair, having lunch Objective: Vital Signs Temp Pulse Resp BP Pulse Ox 97.8 F 68 17 116/69 95 01/01/19 08:00 01/01/19 11:39 01/01/19 11:00 01/01/19 11:00 01/01/19 11:00 Oxygen Flow Rate (L/min) 2 Oxygen Delivery Method Room Air Weight: 107.5 kg Body Mass Index (BMI) 33.7 Intake and Output for Last 24 Hours 12/30/18 12/31/18 01/01/19 23:59 23:59 23:59 Intake Total 524 / 524 1577 / 1577 Output Total 400 / 400 1350 / 1350 Balance 124 / 124 227 / 227 General: Awake, Alert, Oriented x 3, No Acute Distress Oral: Moist Mucosa Neck: Supple, No JVD Lungs: Clear to auscultation Cardiovascular: Regular Rhythm, Normal S1, Normal S2 Vascular: - - Right radial pulse 2+ Extremities: No edema 12/31/18 12:05: Hemoglobin A1c 5.9 12/31/18 15:40: Troponin I 2.590 H* 12/31/18 18:15: Troponin I 7.050 H* 12/31/18 23:00: Magnesium 1.7 01/01/19 04:30: WBC 11.5 H, RBC 4.81, Hgb 14.7, Hct 44.0, MCV 91.5, MCH 30.6, MCHC 33.4, RDW 13.4, RDW Differential 44.1 H, Plt Count 201, MPV 10.4, Immature Gran % (Auto) 0.300, Neut % (Auto) 67.0, Lymph % (Auto) 21.1, [place] % (Auto) 10.4 H, Eos % (Auto) 1.0, Baso % (Auto) 0.2, Absolute Neuts (auto) 7.7, Total Counted Not Reportable 01/01/19 04:30: Sodium 140, Potassium 4.3, Chloride 106, Carbon Dioxide 24.0, Anion Gap 10, BUN 15, Creatinine 0.99, Est GFR (MDRD) Af Amer 99, Est GFR (MDRD) Non-Af 82, BUN/Creatinine Ratio 15.2, Glucose 102, Calcium 7.8 L, Total Bilirubin 1.00, Triglycerides 151, Cholesterol 173, LDL Cholesterol 98, VLDL Cholesterol 30, HDL Cholesterol 45 Rhythm: Normal sinus rhythm EKG: Normal sinus rhythm. No ischemic changes ECHO: Stress Test: Cardiac Cath: PCI: CT Surgery: Holter monitor: EPS: PPM: CXR: Chest CT Scan: Medical Necessity - Tobacco Use Smoking Status: Never smoker Tobacco Use: Non-smoker Assessment/Plan 1. Non-ST elevation myocardial infarction. Status post drug-eluting stent to the diagonal, LAD and left circumflex. Stable. No further anginal symptoms. 2. Coronary artery disease. See #1 above. Continue aspirin and Brilinta. Continue beta-blockers and nitrates. Continue statins. Patient has about 80% proximal RCA lesion. I recommended that he undergo revascularization for that or as inpatient or as a staged procedure as outpatient. Presently him and his wish to have that scheduled as an outpatient. 3. Overall LV systolic function is estimated to be about 35%. Will check an echocardiogram. Started on SHO inhibitors. Started on beta-blockers. 4. 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 Further recommendations in this regards would be made as outpatient. 5. Patient appears mildly anxious. Per his and himself, he has an anxious personality. Will start on low-dose Xanax for for now. May transfer to stepdown.
[2019-01-01] MEDS: ALPRAZolam 0.25 MG Tablet 0.125 MG PO ×2 (14:02→20:58)
[2019-01-01] MEDS: Atorvastatin Calcium 40 MG Tablet PO (20:58)
[2019-01-02] VITALS (7 sets, daily range): BP systolic 109–130; BP diastolic 60–68; PULSE 56–67; RESP 14–18; TEMP 36.6–36.8; O2SAT 96–97
--- NOTE | 2019-01-02 07:33 | ECHOCS_ITS ---
Reason For Study: S/P MS Procedure This was a 2D Doppler, Color Flow transthoracic echocardiogram. The study was technically limited. Contrast injection was performed. Exam performed portable in patient room. Left Ventricle Normal LV size. Left ventricular systolic function is normal. The estimated ejection fraction is 65 %. Normal diastology for age. No regional wall motion abnormalities noted. Right Ventricle Normal RV size. Normal systolic function. Atria Normal left atrium. Normal right atrium. Mitral Valve Normal mitral valve. Tricuspid Valve Normal tricuspid valve. Mild (1+) tricuspid valve insufficiency. Pulmonary artery systolic pressure is 28 mmHg. Aortic Valve Normal aortic valve. Trisinus/trileaflet aortic valve. Pulmonic Valve Normal pulmonic valve. Great Vessels Normal aortic root. The pulmonary artery is normal size. Normal inferior vena cava. Pericardium/Pleural No pericardial effusion. Medication Diluted definity 5ml given slow IV push to enhance endocardial definition. MMode/2D Measurements & Calculations LVIDd: 5.4 cm IVSd: 0.82 cm Ao root diam: 3.9 cm LVIDs: 3.3 cm LVPWd: 0.96 cm RVDd: 4.0 cm FS: 38.7 % LAV(MOD-bp): 49.9 ml LVAd ap4: 33.8 cm2 SV(MOD-sp4): 80.8 ml LAV(MOD-bp) Indexed: 22.4 ml/m2 EDV(MOD-sp4): 108.7 ml LAV(MOD-sp2): 56.7 ml EDV(sp4-el): 113.9 ml LAV(MOD-sp4): 38.1 ml LVAs ap4: 15.1 cm2 ESV(MOD-sp4): 27.9 ml ESV(sp4-el): 29.0 ml EF(MOD-sp4): 74.3 % EF(sp4-el): 74.6 % SV(sp4-el): 85.0 ml LA A4 area: 14.6 cm2 LA dimension(2D): 4.2 cm RA A4 area: 13.1 cm2 Time Measurements MV dec time: 0.27 sec Doppler Measurements & Calculations MV E max mike: 75.8 cm/sec Lat Peak E' Mike: 6.6 cm/sec Med Peak E' Mike: 6.9 cm/sec MV A max mike: 56.9 cm/sec E/E' lat: 11.4 E/E' med: 11.0 MV E/A: 1.3 Ao V2 max: 128.2 cm/sec LV V1 max: 107.8 cm/sec PA V2 max: 105.8 cm/sec Ao max P.6 mmHg LV V1 max P.6 mmHg TR max mike: 241.5 cm/sec TR max P.3 mmHg Interpretation Summary Normal LV size. Left ventricular systolic function is normal. The estimated ejection fraction is 65 %. Mild (1+) tricuspid valve insufficiency. Ordering Physician: Frank Beck Referring Physician: ASTER VICTOR Performed By: Suzan Francis, RDCS, RVT
--- NOTE | 2019-01-02 07:37 | PN.CARD_ITS ---
Subjectve: The patient was seen and evaluated. Appears to be doing well. Objective: Vital Signs Temp Pulse Resp BP Pulse Ox 97.9 F 56 L 14 109/60 96 01/02/19 02:45 01/02/19 02:55 01/02/19 02:45 01/02/19 02:45 01/02/19 02:45 Oxygen Flow Rate (L/min) 2 Oxygen Delivery Method Room Air Weight: 234 lb 9.149 oz Body Mass Index (BMI) 33.7 Intake and Output for Last 24 Hours 12/31/18 01/01/19 01/02/19 23:59 23:59 23:59 Intake Total 524 / 524 7 / 2056 60 60 Output Total 400 / 400 1650 / 1650 Balance 124 / 124 407 / 407 60 / 60 General: Awake, Alert, Oriented x 3 HEENT: PERRL, EOMI, Sclera Non Icteric Neck: Supple, Good ROM, No Lymph Node Enlargement Lungs: Clear to auscultation Cardiovascular: Regular Rhythm, Normal S1, Normal S2, No Murmurs, No Rubs, No Gallops Vascular: No Carotid Bruits, Normal Femoral Pulses, Normal Radial Pulses, Normal Dorsalis Pedal Pulse, Normal Posterior Tibial Pulses Abdomen: Bowel Sounds Present, Soft, Non Tender, No HSM, No Organomegaly Extremities: No Cyanosis, No Clubbing, No edema Neurological: No Focal Motor or Sensory Deficit Psych/Mental Status: Appropriate Rhythm: EKG: ECHO: Stress Test: Cardiac Cath: PCI: CT Surgery: Holter monitor: EPS: PPM: CXR: Chest CT Scan: Medical Necessity - Tobacco Use Smoking Status: Never smoker Tobacco Use: Non-smoker Assessment/Plan 1. Non-ST elevation myocardial infarction. Status post drug-eluting stent to the diagonal, LAD and left circumflex. Stable. No further anginal symptoms. The plan will be to continue him on his beta-srinivas as well as his nitrate. An echocardiogram should be performed today to assess his left ventricular function. 2. Coronary artery disease. See #1 above. Continue aspirin and Brilinta. Continue beta-blockers and nitrates. Continue statins. Patient has about 80% proximal RCA lesion. Would recommend the patient have the above lesion intervened on within the next 1-2 weeks. Patient prefers to go home and come back for this. 3. Overall LV systolic function is estimated to be about 35%. Will check an echocardiogram. Started on SHO inhibitors. Started on beta-blockers. 4. 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 Further recommendations in this regards would be made as outpatient. We will see him as an office next week. He may be discharged later today after the echocardiogram.
[2019-01-02] MEDS: Acetaminophen 325 MG Tablet 650 MG PO (08:05)
--- NOTE | 2019-01-02 08:35 | CRPHASE1 ---
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 Risk Factors/Lifestyle Smoking Status: Never smoker Hx Hypertension: No Hx Diabetes Mellitus Type 1: No Hx Diabetes Mellitus Type 2: No Hx Metabolic Disorders: No Hx Dyslipidemia: No Hx Obesity: Yes Stress: Home/Family ETOH: No Substance Abuse: No Risk Factor for Sedentary Lifestyle: Moderate Risk Laboratory Values: Cardiac Rehab Phase I Labs Hemoglobin A1c 5.9 % (4.2-6.3) 12/31/18 12:05 Triglycerides 151 mg/dL (-199) 01/01/19 04:30 Cholesterol 173 mg/dL (200) 01/01/19 04:30 LDL Cholesterol 98 mg/dL (0-130) 01/01/19 04:30 HDL Cholesterol 45 mg/dL (40-) 01/01/19 04:30 Phase I Education Given On:: [place], Nutrition, Antiplatelet medication Issues Affecting Care:: None Knowledge of Condition:: Yes Learning Preferences: Verbal, Written Hospital Course Presenting Symptoms:: UNSTABLE ANGINA WITH ST DEPRESSION Medical/Surgical History MS:: No Angina:: Yes - UNSTABLE Diabetes:: No Hypertension:: No Dyslipidemia:: No Discharge/Home/Social Eval Discharge Disposition: Home
--- NOTE | 2019-01-02 08:37 | CRPH1.INSTRU ---
General Education CAD and cardiac anatomy and function:: Patient communicates acknowledgment Explanation of diagnoses and procedures:: Patient communicates acknowledgment Sign/Symptoms of PR:: Patient communicates acknowledgment Antiplatelet therapy: Patient communicates acknowledgment Proper use of NTG-SL: Not instructed Emergency procedures and activation of EMS: Patient communicates acknowledgment Compliance of all prescribed medications: Patient communicates acknowledgment Smoking Patient Nicotine/Smoking Risk Factors Are:: Never smoked Dyslipidemia Patient Dyslipidemia Risk Factors Are:: HDL, LDL Recommendations Include:: Lipid profile provided, Reviewed NCEP/ATP guidelines, Therapeutic Lifestyle Change dietary guidelines Dyslipidemia Response Code:: Patient communicates acknowledgment Overweight/Obesity Patient Overweight/Obesity Risk Factors Are:: Obesity - > or = 30 Recommendations Include:: Weight loss of 5-10%, Reduced calorie diet, Exercise 5-7 times/week Overweight/Obesity:: Patient communicates acknowledgment Hypertension Patient Hypertension Risk Factors Are:: No documented hx of HTN Heart Disease Heart Disease Response Code:: Not instructed Diabetes Patient Diabetes Risk Factors Are:: No documented hx of diabetes Metabolic Syndrome Recommendations Include:: Does not meet criteria Sedentary Patient Sedentary Risk Factors Are:: Lack of regular exercise Recommendations Include:: Aerobic exercise 5-7 times/week for 20-30 minutes continuously, Benefits of regular exercise, Discussed home walking program, Monitored Outpatient Cardiac Rehab Sedentary Response Code:: Patient communicates acknowledgment Stress Recommendations Include:: Identification of stressors, and assessment of coping skills, Stress management techniques Stress Response Code:: Patient communicates acknowledgment
--- NOTE | 2019-01-02 10:00 | EKG12_ITS ---
Test Reason : Blood Pressure : / mmHG Vent. Rate : 053 BPM Atrial Rate : 053 BPM P-R Int : 192 ms QRS Dur : 092 ms QT Int : 448 ms P-R-T Axes : 065 055 113 degrees QTc Int : 420 ms Sinus bradycardia T wave abnormality, consider lateral ischemia Abnormal ECG When compared with ECG of 01-JAN-2019 05:09, MANUAL COMPARISON REQUIRED, DATA IS UNCONFIRMED Confirmed by SANDER LEMA, SEVERINO ([id number]), features editor ETTA MORALEZ ([id number]) on 01/05/2019 8:50:54 AM Referred By: Pastora Pascal Confirmed By:SEVERINO BOUCHER MD
[2019-01-02] MEDS: TICAGRELOR 90 MG TABLET PO (10:24)
[2019-01-02] MEDS: Aspirin 81 MG TAB.CHEW PO (10:24)
[2019-01-02] MEDS: Carvedilol 3.125 MG TABLET PO (10:24)
[2019-01-02] MEDS: Isosorbide Mononitrate 60 MG Tablet PO (10:24)
[2019-01-02] MEDS: Lisinopril 2.5 MG Tablet PO (10:24)
[2019-01-02] MEDS: ALPRAZolam 0.25 MG Tablet 0.125 MG PO (10:27)
--- NOTE | 2019-01-02 10:35 | PCM.PN.BLA ---
Progress Note Patient is scheduled to see Dr. Beck in office on 01/10/2019 at 3:15. His staged PCI will be arranged and he will updated on date and time.
--- NOTE | 2019-01-02 11:28 | DS.PCM_ITS ---
Discharge Date and Diagnosis - Problem List Patient Problems: Active and Suspected Problems Hypertensive emergency (Acute) Multivessel coronary artery disease (Acute) Unstable angina (Acute) Date of Admission: 12/31/18 Date of Discharge: 01/02/19 - Primary Discharge Diagnosis Active and Suspected Problems Hypertensive emergency (Acute) Multivessel coronary artery disease (Acute) Unstable angina (Acute) s/p cardiac cath Hospital Course and Treatment Imaging Results: 01/02/19 07:33 Echo Complete [ECHO] Routine Diagnostic Data Chest X-Ray 12/31/18 11:58 IMPRESSION: Cardiomegaly. Electronically Signed: Emmanuel Younger DO at 12:30 EST Tel [phone], Service support , cardiology- Dr Beck and Dr Pascal Procedures: Cardiac catheterization Summary of Care Provided: The patient is a 58 year old M was admitted with a complaint of chest pain. Symptoms started around 9 PM the night before admission and was left-sided, dull and aching and rated 8 out of 10 in severity, radiating to his left arm and aggravated by movement. He had no relieving factors. He came to the ED where pain was relieved by nitroglycerin. EKG initially showed ST depression in leads V3, V4, V5 and V6. Subsequently he started having worsening chest pain and was noted to have sinus bradycardia and T wave inversions in the inferior and lateral leads. Patient was diagnosed with unstable angina STEMI alert was called and patient was taken for emergent cardiac catheterization where he was found to have multi vessel artery artery disease. He had 99% occlusion of the first diagonal branch and 80% occlusion of the proximal mid LAD. He also had 80% stenosis in the RCA. He had placement of drug-eluting stent to the diagonal branch. His blood pressure was also initially elevated subsequently improved. He was admitted and managed for ACS due to unstable angina status post PCI and hypertensive emergency as his blood pressure was elevated in the 200s on admission. 2D echo done on 01/02/2019 showed EF of 65% with normal diastolic for age and no regional wall motion abnormalities noted. Patient remained stable and was discharged home on 01/02/2019 with a prescription for p.o. aspirin, statin, Brilinta, Coreg, and to lisinopril. A1c was 5.9. 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 Patient seen and examined prior to discharge. He had no complaints and felt well. He denied any fever, any chills, any chest pain, palpitations or dizziness, any abdominal pain, any diarrhea vomiting. Review of systems otherwise negative. Labs and vitals reviewed. Home medications reviewed and reconciled. o/e; Vital Signs Height 5 ft 10 in Weight: 234 lb 9.149 oz Weight in Pounds 234.6 lbs Pulse Ox 97 Temperature 98.3 F Pulse Rate 67 Respiratory Rate 18 Blood Pressure [BP] 116/69 Blood Pressure 109/62 Blood Pressure Position [BP] Semi-Fowlers Blood Pressure Position Semi-Fowlers General: Alert, Cooperative, No apparent distress, HEENT: Atraumatic, Normocephalic Oral: Moist Mucosa, No Gingival or Mucosal Lesions/ Ulcerations Neck: No Nodes, Thyroid Normal Size and Texture Lungs: lung clear to auscultation. Abdomen: Bowel Sounds Present, Soft, Non Tender, Non-Distended, No Hepato- splenomegaly Extremities: No Calf Tenderness Skin: No rashes, No breakdown; chest dialysis catheter in place Musculoskeletal: No Tenderness to Palpation of Joints or Extremities, No Muscle Wasting Psych/Mental Status: Normal Affect, Appropriate Plan is as discussed above. Patient Problems: Active and Suspected Problems Hypertensive emergency (Acute) Multivessel coronary artery disease (Acute) Unstable angina (Acute) - Physical Exam Vital Signs Temp Pulse Resp BP Pulse Ox 98.3 F 67 18 109/62 97 01/02/19 10:22 01/02/19 11:02 01/02/19 10:22 01/02/19 10:22 01/02/19 10:22 Oxygen Flow Rate (L/min) 2 Oxygen Delivery Method Room Air Weight: 234 lb 9.149 oz Body Mass Index (BMI) 33.7 Intake and Output for Last 24 Hours 12/31/18 01/01/19 01/02/19 23:59 23:59 23:59 Intake Total 524 / 524 2056 / 2056 60 60 Output Total 400 / 400 1650 / 1650 Balance 124 / 124 407 / 407 60 / Discharge Diet: Low fat/ Low Cholesterol Discharge Activity: Return to Normal Activity Weight Bearing Status: Weight bearing as tolerated Call your doctor if you observe: Shortness of breath, Dizziness, Chest pain Home Medications: Medications to take at Discharge Aspirin [Aspirin, Baby] 81 mg PO DAILY@0800 #30 tab.chew 01/02/19 Atorvastatin Calcium [Lipitor] 40 mg PO QHS #30 tablet 01/02/19 Carvedilol [Coreg (Beta Luis)] 3.125 mg PO BID #60 tablet 01/02/19 Isosorbide Mononitrate [Imdur] 60 mg PO DAILY #30 tablet 01/02/19 Lisinopril [Zestril] 2.5 mg PO DAILY #30 tablet 01/02/19 Ticagrelor [Brilinta] 90 mg PO BID #60 tablet 01/02/19 Following Prescrptions Were Given to Patient: Aspirin [Aspirin, Baby] 81 mg PO DAILY@0800 #30 tab.chew Atorvastatin Calcium [Lipitor] 40 mg PO QHS #30 tablet Isosorbide Mononitrate [Imdur] 60 mg PO DAILY #30 tablet Lisinopril [Zestril] 2.5 mg PO DAILY #30 tablet Carvedilol [Coreg (Beta Luis)] 3.125 mg PO BID #60 tablet Ticagrelor [Brilinta] 90 mg PO BID #60 tablet Primary Care Physician: Atilio Morales MD [Primary Care Provider] - Please follow up with your Primary Care Physician in: one week Please Follow Up With: Frank Beck MD When: one week Patient Instructions: Discharge Instructions for Angina, Warning Signs of a Heart Attack Disposition: Home Minutes spent on discharge:: 40 Patient Condition:: Stable Medical Necessity - Tobacco Use Smoking Status: Never smoker Tobacco Use: Non-smoker Meaningful Use Info Meaningful Use Diagnoses (Choose all that apply): AMI - AMI Aspirin given w/in 24hrs of arrival?: Yes ASA at discharge?: Yes Statins at discharge?: Yes Deep/ARB at discharge?: Yes Beta Luis at discharge?: Yes Done w/ Acute CA measure.: Yes Code Visit Inpatient E&M: 21855 Disch Hosp
--- NOTE | 2019-01-02 11:28 | DCINST_ITS ---
- Discharge Diagnoses Current Active Problems: Current Active and Chronic Problems Hypertensive emergency (Acute) Multivessel coronary artery disease (Acute) Unstable angina (Acute) You will use the following diet at home:: Cardiac Your food should be the consistency of: Regular Your liquids should be the consistency of: Regular/Thin Discharge Activity: Return to Normal Activity Weight Bearing Status: Weight bearing as tolerated Call your doctor if you observe: Shortness of breath, Dizziness, Chest pain Instructions: Discharge Instructions for Angina, Warning Signs of a Heart Attack Allergies/Adverse Reactions: Allergies No Known Allergies Allergy (Verified 04/20/18 11:26) Medications to take at Discharge Aspirin [Aspirin, Baby] 81 mg PO DAILY@0800 #30 tab.chew 01/02/19 Atorvastatin Calcium [Lipitor] 40 mg PO QHS #30 tablet 01/02/19 Carvedilol [Coreg (Beta Luis)] 3.125 mg PO BID #60 tablet 01/02/19 Isosorbide Mononitrate [Imdur] 60 mg PO DAILY #30 tablet 01/02/19 Lisinopril [Zestril] 2.5 mg PO DAILY #30 tablet 01/02/19 Ticagrelor [Brilinta] 90 mg PO BID #60 tablet 01/02/19 The following prescriptions were given: Aspirin [Aspirin, Baby] 81 mg PO DAILY@0800 #30 tab.chew Atorvastatin Calcium [Lipitor] 40 mg PO QHS #30 tablet Isosorbide Mononitrate [Imdur] 60 mg PO DAILY #30 tablet Lisinopril [Zestril] 2.5 mg PO DAILY #30 tablet Carvedilol [Coreg (Beta Luis)] 3.125 mg PO BID #60 tablet Ticagrelor [Brilinta] 90 mg PO BID #60 tablet Primary Care Physician: Atilio Morales MD [Primary Care Provider] - Please follow up with your Primary Care Physician in: one week Test Results: Test results from this visit will be discussed in further detail at your follow- up appointment, if applicable. Please Follow Up With: Frank Beck MD When: one week Proposed Discharge Date: 01/02/19 Cardiac Rehab Referral Please Follow Up with Cardiac Rehabilitation:: 2 Weeks Cardiac Rehabilitation was informed of this Referral:: Yes - Notifies Card Rehab
--- NOTE | 2019-01-02 11:50 | CASEMGMT ---
Assessment- SW met with patient and his . Introduced self as well as role at [facility]. Patient was in agreement with talking with SW. Living situation- Patient lives with his in a 3 story home. With several entry steps PCP: Dr. Atilio Morales Specialists: None Pharmacy: [facility] DME: None ADL's/IADL's: Independent in all activities. Patient still works. Past SNF/rehab: None Past HH: None LW: Yes. Patient is aware they are not on file at [facility]. POA: Yes. Patient is aware they are not on file at [facility]. Plan: Patient will be discharged home with no needs. Mila SARMIENTO SUPPORT TEACHER
== END 2019-01-02 13:32 | disposition home or self-care (01) | DRG 247 ==
LOC: ED 13:09 → ICU 14:37 → PCU 01-01 14:18
PROVIDERS: Hospitalist; Admitting Provider Hospitalist; Emergency Provider Emergency Medicine; Family Provider Family Medicine; PCP Family Medicine; Visit Provider Student in an Organized Health Care Education/Training Program
DX: I21.4 Non-ST elevation (NSTEMI) myocardial infarction (principal); I16.1 Hypertensive emergency; I25.110 Atherosclerotic heart disease of native coronary artery with unstable angina pectoris
CPT/HCPCS: 71045; 80048; 80053; 80061; 83036; 83735; 84443; 84484; 85025; 85347; 92928; 92929; 93005; 93306; 93458; 97802; 99152; 99153; 99283; J7030; J7040; Q9957; Q9967; A4216; C1725; C1769; C1874; C1887; C1894; C8929; C9600; C9601; J0583; J2405

== ENCOUNTER → 2019-01-26 11:55 | Outpatient (CLI) | payer OTHER, SELFPAY ==
[2018-12-31 15:48] VITALS: BMI 33.7
--- NOTE | 2019-01-26 13:24 | CR.ITP_ITS ---
General Information - General Information Admitting Diagnosis: PCI with stent x 3 12/31/18 - Education/Goals Barriers to Learning: None Individual Counseling: Initial Assessment: Abnormal Cholesterol Levels, High Blood Pressure, Overweight/Obesity, Hypertension, Sedentary Lifestyle, Stress Cardiac Rehabilitation Goals: 1. Maintain the individual as the primary focus of care. 2. To improve the patient's quality of life. 3. Identification of cardiac risk factors and provide cardiac risk factor management. 4. Enhance the psychosocial status of the patient. 5. Reconditioning enough to allow the patient to resume customary activities. 6. Control symptoms of cardiac disease Scale for measuring improvement of personal goals: Enter appropriate number in Comments. 2 = Unchanged. 3 = Slightly Better. 4 = Moderate Improvement. 5 = Met my Goal Personal Goals: Initial Assessment: Improve management of stress and emotions, Improve energy level, Participate in home exercise program, Get back to work, or to resume activities faster, Improve knowledge of cardiac disease, Improve muscle strength and endurance, Improve diet and eating habits (eat healthier), Control risk factors (learn risk factor modification) Exercise - Initial Assessment - Visit Date of Eval: 01/26/19 - Stages of Change Stages of Change:: Action - Physician Prescribed Exercise Modalities: Treadmill, Biodyne, Rower, Airdyne, NuStep, SciFit Frequency (days/week): 3x/week for 12 weeks [36 sessions] Intensity: Rating of perceived exertion (Johnny Scale) - Hypertension Do any of the following apply?: Yes - Intervention Home Exercise/Activity Goal:: Moderate Exercise 30 min/day x 5 days/wk - Education Goals:: Warm-up, RPE JOHNNY Scale, S/S, Safe Exercise, Self-Monitoring - Exercise Program Goals Exercise Program Goals: Aerobic Activity >30 min Nutrition - Initial Assessment - Program Goals Nutrition Program Goals: LDL <70. Total Cholesterol <200. HDL >45. Triglycerides <150. HgbA1C <7%. BMI <25 - Visit Date of Assessment:: 01/26/19 - Stages of Change Stages of Change:: Action - Lipids Total Cholesterol (mg/dL) Goal = less than 200 mg/dL: 173 HDL Cholesterol (mg/dL) Goal = less than 45 mg/dL: 45 LDL Cholesterol (mg/dL) Goal = less than 70 mg/dL: 98 Triglycerides (mg/dL) Goal = less than 150 mg/dL: 151 Lipid Medication: Lipitor - Weight Management Height: 5 ft 10 in Weight:: 230 lb Weight Goal (kg):: 190 lb Body Fat %:: 33 Goal % Body Fat:: 24 - Intervention Referral to dietitian:: Yes Referral to Diabetic Clinic:: No Will attend diet classes:: Yes - Education Gave educational materials for:: Healthy eating Tobacco - Initial Assessment - Program Goals Tobacco Program Goals: Complete smoking cessation. Attend education classes. Improve Knowledge Test score - Stage of Change Stages of Change:: Action - Learning Barriers Learning Barriers: Ready to Learn Total Score:: 19 - Family Support Do you have family support?: Yes - Tobacco Use Tobacco Use: Non-smoker Do you use smokeless tobacco?: No - Intervention Smoking Cessation Referral:: No Individual Education/Counseling:: No Education Schedule Given:: Yes - Education Gave educational material for:: Coronary artery disease, Risk factors, Sexuality, Medical compliance, Cardiac A&P, Angina signs & symptoms Psychosocial - Initial Assess - Target Goals Target Goals: Assess presence or absence of depression. Using a valid screening tool, maximizes coping skills. Positive support system - Stages of Change Stages of Change:: Action - Psychosocial Test Tool Used:: HANDS Depression Questionnaire Self-reported stress:: yes Total Mood Screening Score:: 8 Self-Efficacy Score:: 8 - Intervention PS - Interventions: Yes Attend Stress Management Classes, Yes Uses Stress Management Skills, No Referral to Mental Health, No Referral to [facility] Case Management, No Referral to Physician - Education Gave educational materials for:: Coping techniques, Signs & symptoms of depression, Stress management, Relaxation techniques - Patient/Program Goal Preventative Medication(s):: Aspirin, SHO inhibitor, Clopidogrel, Beta srinivas, Statin/lipid - Assistive Devices Assistive Devices:: None Fall Risk Assessed:: Yes Patient Health Questionnaire Initial Assessment 1. Little interest or pleasure in doing things: More than half the days 2. Feeling down, depressed, or hopeless: Several days 3. Trouble falling or staying asleep, or sleeping too much: More than half the days 4. Feeling tired or having little energy: More than half the days 5. Poor appetite or overeating: Not at all 6. Feeling bad about yourself -- or that you are a failure or have let yourself or your family down: Several days 7. Trouble concentrating on things, such as reading the newspaper or watching television: Not at all 8. Moving or speaking so slowly that other people could have noticed. Or the opposite - being so fidgety or restless that you have been moving around a lot more than usual: Not at all 9. Thoughts that you would be better off , or of hurting yourself in some way: Not at all How difficult have these problems made it for you to do your work, take care of things at home, or get along with other people?: Not difficult at all Total Score: 8 MARGI-Q SV Test - Statements CAD is a disease of the arteries in the heart: False Examples of risk factors for heart disease: True Angina is chest pain or discomfort: True The benefits of resistance training include: True Eating more meat and dairy products: False Anti-platelet medications such as aspirin are important: True The only effective way to manage stress: False An exercise warm-up slowly increases heart rate: True Prepared, processed foods usually have high sodium: True Depression is common after a heart attack: True The statin medications lower cholesterol: True To control blood pressure, lower the amount of sodium: True If someone gets chest discomfort during walking: False Transfats are partially hydrogenated vegetable oils: True Sleep apnea that is not treated increases the risk: True To control cholesterol, one should become a vegetarian: False Someone knows if he/she is exercising at the right level: True Diabetes cannot be prevented with exercise & health eating: False Stress is a large risk for heart attack: True A diet that can help lower blood pressure is rich in: True - Total Score Total Correct Responses: 19 Self-Efficacy Initial Assessment We would like to know how confident you are in doing certain activities. Please select your confidence level for:: Select your confidence level for the following using the scale 1-10 where 1 is not at all confident and 10 is totally confident. Your score is the average of all 6 responses. Fatigue: How confident are you that you can keep the fatigue caused by your disease from interfering with the things you want to do? Select Number: 7 Physical Discomfort or Pain: How confident are you that you can keep the physical discomfort or pain of your disease from interfering with the things you want to do? Select Number: 8 Emotional Distress: How confident are you that you can keep the emotional distress caused by your disease from interfering with the things you want to do? Select Number: 8 Other Symptoms or Health Problems: How confident are you that you can keep other symptoms or health problems from interfering with the things you want to do? Select Number: 8 Different Tasks and Activities: How confident are you that you can do the different tasks and activities needed to manage your health condition so as to reduce your need to see a doctor? Select Number: 10 Medication: How confident are you that you can do things other than just taking medication to reduce how much your illness affects your everyday life? Select Number: 10 Total Score:: 8 Nutrition Survey - Nutrition Survey Instructions Scoring Instructions: Scoring is as follows: Yes = 1 points. No = 0 point. Patient score that is >/=12 is considered to be at potential nutritional risk and could benefit from a referral to a registered dietitian. - Nutrition Survey Initial Have you lost >10 lbs over the past 2 months without trying?: No Are you following a special diet at home for diabetes, low fat, or low salt?: No Are you interested in meeting with a dietitian for help understanding your diet?: No Do you eat less than 3 meals a day?: No Do you eat fatty meats (epperson, sausage, ribs, etc), fried foods, desserts, large amounts of salad dressings, margarine, butter, or cheese most days?: No Do you have food allergies? [Enter types in comment field]: No Do you eat in restaurants more than 3 times a week?: Yes Do you season food with salt, seasoning salt, or garlic salt?: No Do you used canned, boxed, frozen meals, or soups, seasoning packets?: No Total Score:: 1
--- NOTE | 2019-01-26 13:43 | PCM.CR.HP2 ---
CR - History & Physical - General Arrival date:: 01/26/19 Arrival time:: 13:43 Date of Referral:: 01/26/19 Date of CR Evaluation:: 01/26/19 Referring Physician: Dr. Hannah Nicholson Primary Diagnosis: Pci with stent 12/31/18 - History of Present Cardiac Event Onset Date: Enter Onset Date of cardiac illnesses in Comment field below Current stable Angina Pectoris:: Yes Acute Myocardial Infarction within 12 months:: Yes Coronary Artery Bypass Graft:: No Heart valve replacement or repair:: No PTCA or coronary stenting:: Yes - 12/31/18 x 3 Heart or Heart-Lung Transplant:: No Type of Symptoms:: chest pain and burning, SOB Interventions with present event:: heart cath Were there any complications?: no - Medications Home Medications: Ambulatory Orders Medication Instructions Recorded Aspirin [Aspirin, Baby] 81 mg PO DAILY@0800 #30 tab.chew 01/02/19 Atorvastatin Calcium [Lipitor] 40 mg PO QHS #30 tablet 01/02/19 Carvedilol [Coreg (Beta Luis)] 3.125 mg PO BID #60 tablet 01/02/19 Isosorbide Mononitrate [Imdur] 60 mg PO DAILY #30 tablet 01/02/19 Lisinopril [Zestril] 2.5 mg PO DAILY #30 tablet 01/02/19 Ticagrelor [Brilinta] 90 mg PO BID #60 tablet 01/02/19 - Allergies Allergies/Adverse Reactions: Allergies almonds Adverse Reaction (Uncoded 01/26/19 13:51) Swelling - Sleep Disorder Evaluation Hx of Sleep Apnea: No Do you snore loudly (louder than talking or can be heard through closed doors)?: Yes Do you often feel tired/ fatigued/ sleepy during daytime?: Yes Has anyone observed you stop breathing during sleep?: No History of Hypertension (for STOP score): Yes STOP Results: Positive Advanced Directives - Advanced Directives Power of Ibm Mainframe Developer: Yes Living Will: Yes Advance Directives Information Provided: Yes Advance Directives on File: No DNR Order?:: No Past Medical History - Past Medical Illness Medical History: Past Medical History Atherosclerosis of coronary artery of [place] heart without angina pectoris (Acute) I25.10 LEXY-Prox D1 w/ 2.25 x 18 mm Resolute Integrity Stent, LEXY-Distal LCX w/ 2.25 x 14 mm Resolute Integrity Stent & ZAC-Brin-Tcv LAD w/ 2.5 x 22 Resolute Integrity Stent 12/31/18 Acute coronary syndrome (Acute) I24.9 History of non-ST elevation myocardial infarction (NSTEMI) (Acute) I25.2 - Past Surgical History Surgical History: Past Surgical History (Last Updated 01/03/19 @ 12:51 by Malina Sexton) History of coronary artery stent placement (Resolved) Onset Date: 12/31/18 Z95.5 LEXY-Prox D1 w/ 2.25 x 18 mm Resolute Integrity Stent, LEXY-Distal LCX w/ 2.25 x 14 mm Resolute Integrity Stent & QWQ-Rrfu-Wnp LAD w/ 2.5 x 22 Resolute Integrity Stent 12/31/18 Surgical History: herniorrhaphy Social History - Smoking History Smoking Status: Never smoker Hx Tobacco Use: No Hx Smoking Exposure: No - Alcohol Use Alcohol Usage: Yes - 1-2 drinks on weekend - Substance Abuse Hx Substance Use: No - Occupation Occupation (List type of work in comments):: Employed Hours worked per day:: 10 - Hobbies, Recreation, Social Activities Hobbies: Other - motorcycle, gardening, target Recreational Activities: I am able to engage in all my recreational activities Social Environment - Status Marital Status: - Current Living Arrangements Living Environment:: Spouse - Children How many children do you have?: 1 Do any of your children live nearby?: Yes - Safety Do you feel safe in your surroundings?: Yes - Assistance Do you need any assistance at home?: no Review of Systems - Review of Systems Hints: Right click = Denies ([place]). Left click = Reports ([place]) Review of Present Symptoms: Reports: Angina - slight chest discomfort which he has had for years, Fatigue, Appetite - Normal, Appetite - Special Diet, Sleep - Normal. Denies: Shortness of Breath at Rest, Shortness of Breath with Exertion, PVD, Operative Discomfort, Wound Healing, Dizziness/Lightheadedness, Heart Arrhythmia/Irregularities, Sexual Changes - Pain Is Patient Pain Free?: No Pain Location: chest Pain Level: 1/10 Previous experience dealing with pain?: movement Risk Factor Assessment - Vital Signs Pulse Ox: 95 - Pulse Pulse Rate: 53 Pulse Rhythm: Regular - Hypertension Blood Pressure Sitting - Right Arm: 162/100 Blood Pressure Sitting - Left Arm: 120/60 - Stress Stress: Recent, Long-standing, Work-related, Home/Family - Blood Cholesterol/Lipids Total Cholesterol (mg/dL) Goal = less than 200 mg/dL: 173 HDL Cholesterol (mg/dL) Goal = less than 40 mg/dL: 45 LDL Cholesterol (mg/dL) Goal = less than 70 mg/dL: 98 Triglycerides (mg/dL) Goal = less than 150 mg/dL: 151 - Diabetes Nutrition Referral for Diabetes: No - Obesity Height: 5 ft 10 in Weight:: 230 lb Weight in Pounds: 230.0 lbs Body Mass Index (BMI): 33.0 Desired Body Weight: 190 Realistic Weight Goal (Loss of 1-2 lbs/week): 210 Nutritional Referral for Obesity: Yes - Physical Inactivity Physical Inactivity: Reg Exercise 30 min/day - Risk Stratification Risk Guidelines: Lowest Risk: Risk Factor for Smoking, Risk Factor for Diabetes, Moderate Risk: Risk Factor for Dyslipidemia, Risk Factor for Obesity, Risk Factor for Hypertension, Risk Factor for Sedentary Lifestyle, Risk Factor for Depression - For Smoking Smoking Risk Guidelines: Smoking Low Risk: None or quit greater than 6 months ago. Smoking Moderate Risk: Smoker or quit 6 months or less ago. Smoking High Risk: Smoker - For Dyslipidemia Dyslipidemia Risk Guidelines: Low Risk: Moderate Risk: High Risk: 15-25% fat 25.1-29% fat >/= 30% fat. <7% sat fat 7-9% sat fat >9% sat fat. <150 mg chol 150-299 mg chol >/= 300 mg chol. LDL <100 LDL 100-129 LDL >/= 130. Chol/HDL ratio <5.0 Chol/HDL ratio 5.0-6.0 Chol/HDL ratio >6.0. Triglycerides <100 Triglycerides 100-149 Triglycerides >/= 150 - For Diabetes Mellitus Diabetes Risk Guidelines: Diabetes Low Risk: HgA1c <6.5% and/or FBG <120. Diabetes Moderate Risk: HgA1c 6.6-7.9% and/or FBG 120-180. Diabetes High Risk: HgA1c >/= 8% and/or FBG >180 - For Obesity/Overweight Obesity/Overweight Risk Guidelines: Obesity Low Risk: BMI <25.0. Obesity Moderate Risk: BMI 25-29.9. Obesity High Risk: BMI >/= 30.0 - For Hypertension Hypertension Risk Guidelines: Hypertension Low Risk: Systolic <120 and Diastolic <80. Hypertension Moderate Risk: Systolic 120-139 and Diastolic 80-89. Hypertension High Risk: Systolic >/= 140 and Diastolic >/= 90 - For Sedentary Lifestyle Sedentary Lifestyle Risk Guidelines: Sedentary Lifestyle Low Risk: >/= 1,500 kcal/week. Sedentary Lifestyle Moderate Risk: 700-1,499 kcal/week. Sedentary Lifestyle High Risk: < 700 kcal/week - For Depression Depression Risk Guidelines: Depression Low Risk: Not clinically depressed. Depression Moderate Risk: Mildly depressed. Depression High Risk: Clinically depressed Motivation - Motivation to Participate On a scale of 1 to 10, how prepared are you to commit to attending program?: 10
--- NOTE | 2019-01-26 13:48 | CR.HP_ITS ---
CR - History & Physical - General Arrival date:: 01/26/19 Arrival time:: 13:43 Date of Referral:: 01/26/19 Date of CR Evaluation:: 01/26/19 Referring Physician: Dr. Hannah Nicholson Primary Diagnosis: Pci with stent 12/31/18 - History of Present Cardiac Event Onset Date: Enter Onset Date of cardiac illnesses in Comment field below Current stable Angina Pectoris:: Yes Acute Myocardial Infarction within 12 months:: Yes Coronary Artery Bypass Graft:: No Heart valve replacement or repair:: No PTCA or coronary stenting:: Yes - 12/31/18 x 3 Heart or Heart-Lung Transplant:: No Type of Symptoms:: chest pain and burning, SOB Interventions with present event:: heart cath Were there any complications?: no - Medications Home Medications: Ambulatory Orders Medication Instructions Recorded Aspirin [Aspirin, Baby] 81 mg PO DAILY@0800 #30 tab.chew 01/02/19 Atorvastatin Calcium [Lipitor] 40 mg PO QHS #30 tablet 01/02/19 Carvedilol [Coreg (Beta Luis)] 3.125 mg PO BID #60 tablet 01/02/19 Isosorbide Mononitrate [Imdur] 60 mg PO DAILY #30 tablet 01/02/19 Lisinopril [Zestril] 2.5 mg PO DAILY #30 tablet 01/02/19 Ticagrelor [Brilinta] 90 mg PO BID #60 tablet 01/02/19 - Allergies Allergies/Adverse Reactions: Allergies almonds Adverse Reaction (Uncoded 01/26/19 13:51) Swelling - Sleep Disorder Evaluation Hx of Sleep Apnea: No Do you snore loudly (louder than talking or can be heard through closed doors)?: Yes Do you often feel tired/ fatigued/ sleepy during daytime?: Yes Has anyone observed you stop breathing during sleep?: No History of Hypertension (for STOP score): Yes STOP Results: Positive Advanced Directives - Advanced Directives Power of Operations Processor: Yes Living Will: Yes Advance Directives Information Provided: Yes Advance Directives on File: No DNR Order?:: No Past Medical History - Past Medical Illness Medical History: Past Medical History Atherosclerosis of coronary artery of [place] heart without angina pectoris (Acute) I25.10 LEXY-Prox D1 w/ 2.25 x 18 mm Resolute Integrity Stent, LEXY-Distal LCX w/ 2.25 x 14 mm Resolute Integrity Stent & JUB-Fqbo-Pyn LAD w/ 2.5 x 22 Resolute Integrity Stent 12/31/18 Acute coronary syndrome (Acute) I24.9 History of non-ST elevation myocardial infarction (NSTEMI) (Acute) I25.2 - Past Surgical History Surgical History: Past Surgical History (Last Updated 01/03/19 @ 12:51 by Malina Sexton) History of coronary artery stent placement (Resolved) Onset Date: 12/31/18 Z95.5 LEXY-Prox D1 w/ 2.25 x 18 mm Resolute Integrity Stent, LEXY-Distal LCX w/ 2.25 x 14 mm Resolute Integrity Stent & WMA-Femk-Boa LAD w/ 2.5 x 22 Resolute Integrity Stent 12/31/18 Surgical History: herniorrhaphy Social History - Smoking History Smoking Status: Never smoker Hx Tobacco Use: No Hx Smoking Exposure: No - Alcohol Use Alcohol Usage: Yes - 1-2 drinks on weekend - Substance Abuse Hx Substance Use: No - Occupation Occupation (List type of work in comments):: Employed Hours worked per day:: 10 - Hobbies, Recreation, Social Activities Hobbies: Other - motorcycle, gardening, target Recreational Activities: I am able to engage in all my recreational activities Social Environment - Status Marital Status: - Current Living Arrangements Living Environment:: Spouse - Children How many children do you have?: 1 Do any of your children live nearby?: Yes - Safety Do you feel safe in your surroundings?: Yes - Assistance Do you need any assistance at home?: no Review of Systems - Review of Systems Hints: Right click = Denies ([place]). Left click = Reports ([place]) Review of Present Symptoms: Reports: Angina - slight chest discomfort which he has had for years, Fatigue, Appetite - Normal, Appetite - Special Diet, Sleep - Normal. Denies: Shortness of Breath at Rest, Shortness of Breath with Exertion, PVD, Operative Discomfort, Wound Healing, Dizziness/Lightheadedness, Heart Arrhythmia/Irregularities, Sexual Changes - Pain Is Patient Pain Free?: No Pain Location: chest Pain Level: 1/10 Previous experience dealing with pain?: movement Risk Factor Assessment - Vital Signs Pulse Ox: 95 - Pulse Pulse Rate: 53 Pulse Rhythm: Regular - Hypertension Blood Pressure Sitting - Right Arm: 162/100 Blood Pressure Sitting - Left Arm: 120/60 - Stress Stress: Recent, Long-standing, Work-related, Home/Family - Blood Cholesterol/Lipids Total Cholesterol (mg/dL) Goal = less than 200 mg/dL: 173 HDL Cholesterol (mg/dL) Goal = less than 40 mg/dL: 45 LDL Cholesterol (mg/dL) Goal = less than 70 mg/dL: 98 Triglycerides (mg/dL) Goal = less than 150 mg/dL: 151 - Diabetes Nutrition Referral for Diabetes: No - Obesity Height: 5 ft 10 in Weight:: 230 lb Weight in Pounds: 230.0 lbs Body Mass Index (BMI): 33.0 Desired Body Weight: 190 Realistic Weight Goal (Loss of 1-2 lbs/week): 210 Nutritional Referral for Obesity: Yes - Physical Inactivity Physical Inactivity: Reg Exercise 30 min/day - Risk Stratification Risk Guidelines: Lowest Risk: Risk Factor for Smoking, Risk Factor for Diabetes, Moderate Risk: Risk Factor for Dyslipidemia, Risk Factor for Obesity, Risk Factor for Hypertension, Risk Factor for Sedentary Lifestyle, Risk Factor for Depression - For Smoking Smoking Risk Guidelines: Smoking Low Risk: None or quit greater than 6 months ago. Smoking Moderate Risk: Smoker or quit 6 months or less ago. Smoking High Risk: Smoker - For Dyslipidemia Dyslipidemia Risk Guidelines: Low Risk: Moderate Risk: High Risk: 15-25% fat 25.1-29% fat >/= 30% fat. <7% sat fat 7-9% sat fat >9% sat fat. <150 mg chol 150-299 mg chol >/= 300 mg chol. LDL <100 LDL 100-129 LDL >/= 130. Chol/HDL ratio <5.0 Chol/HDL ratio 5.0-6.0 Chol/HDL ratio >6.0. Triglycerides <100 Triglycerides 100- 149 Triglycerides >/= 150 - For Diabetes Mellitus Diabetes Risk Guidelines: Diabetes Low Risk: HgA1c <6.5% and/or FBG <120. Diabetes Moderate Risk: HgA1c 6.6-7.9% and/or FBG 120-180. Diabetes High Risk: HgA1c >/= 8% and/or FBG >180 - For Obesity/Overweight Obesity/Overweight Risk Guidelines: Obesity Low Risk: BMI <25.0. Obesity Moderate Risk: BMI 25-29.9. Obesity High Risk: BMI >/= 30.0 - For Hypertension Hypertension Risk Guidelines: Hypertension Low Risk: Systolic <120 and Diastolic <80. Hypertension Moderate Risk: Systolic 120-139 and Diastolic 80-89. Hypertension High Risk: Systolic >/= 140 and Diastolic >/= 90 - For Sedentary Lifestyle Sedentary Lifestyle Risk Guidelines: Sedentary Lifestyle Low Risk: >/= 1,500 kcal/week. Sedentary Lifestyle Moderate Risk: 700-1,499 kcal/week. Sedentary Lifestyle High Risk: < 700 kcal/week - For Depression Depression Risk Guidelines: Depression Low Risk: Not clinically depressed. Depression Moderate Risk: Mildly depressed. Depression High Risk: Clinically depressed Motivation - Motivation to Participate On a scale of 1 to 10, how prepared are you to commit to attending program?: 10
[2019-01-26 14:08] VITALS: BP 120/60; BP 162/100; PULSE 53; O2SAT 95; BMI 33.0
== END ==
PROVIDERS: Family Provider Family Medicine; PCP Family Medicine
DX: Z95.5 Presence of coronary angioplasty implant and graft (principal)

== ENCOUNTER → 2019-02-13 06:32 | Outpatient (CLI) | payer OTHER, SELFPAY ==
[2019-01-26 14:08] VITALS: BMI 33.0
--- NOTE | 2019-02-13 19:10 | STRESSREP ---
Stress Test Report Exercise myocardial perfusion stress test. 58-year-old man with a history of coronary artery disease previous recent ST elevation myocardial infarction. Medications aspirin, Imdur, atorvastatin, carvedilol, lisinopril. Stress protocol: Resting EKG demonstrates normal sinus rhythm with a rate of 58 bpm normal intervals are noted resting blood pressures 124/82 mmHg. The patient exercised according to regular Abundio protocol for a total duration of 9 minutes and 30 seconds completing 30 seconds into stage IV of the Abundio protocol the maximum heart rate attained was 139 bpm which was 89 6% of maximum predicted heart rate the maximum workload was 10.9 metabolic equivalents. At rest there were no ST or T wave changes noted suggest ischemia peak exercise upsloping ST changes were noted with no meet the criteria for ischemia. No clinical angina was noted there was slight shortness of breath noted. The resting blood pressures 124/82 with a peak blood pressure 170/87 mmHg Myocardial perfusion protocol. 14.8 mCi of technetium 99m sestamibi was injected at rest. Patient exercised according to regular Abundio protocol for 9-1/2 minutes at peak exercise 44.5 mCi of technetium 99m sestamibi was injected stress images were obtained stress and rest images were reconstructed in comparing the short axis vertical long horizontal long axis. Gated images was obtained Perfusion SPECT analysis: Review of the stress images demonstrate normal uptake of tracer noted in all areas of the myocardium the resting images similarly demonstrate normal uptake of tracer noted in all areas of myocardium. No areas of reversibility are noted suggest ischemia no previous infarct is noted. Gated SPECT analysis the gated ejection fraction is noted to be 63%. Conclusion: Normal exercise stress myocardial perfusion scan with no evidence of ischemia at a high workload No clinical angina noted No arrhythmias noted.
== END ==
PROVIDERS: Family Provider Family Medicine; PCP Family Medicine; Referring Provider Internal Medicine Cardiovascular Disease; Visit Provider Internal Medicine Cardiovascular Disease
DX: I25.10 Atherosclerotic heart disease of native coronary artery without angina pectoris (principal); Z95.5 Presence of coronary angioplasty implant and graft
CPT/HCPCS: 78452; 93017; A9500; A4216

== ENCOUNTER 2019-02-17 15:15 | Outpatient (RCR) | payer OTHER, SELFPAY ==
[2019-01-26 14:08] VITALS: BMI 33.0
== END 2019-02-19 23:59 ==
LOC: CR 15:15
PROVIDERS: Family Provider Family Medicine; PCP Family Medicine
DX: I21.4 Non-ST elevation (NSTEMI) myocardial infarction (principal); E78.2 Mixed hyperlipidemia
CPT/HCPCS: 93798

== ENCOUNTER 2019-03-17 15:15 | Outpatient (RCR) | payer OTHER, SELFPAY ==
[2019-01-26 14:08] VITALS: BMI 33.0
--- NOTE | 2019-02-24 13:26 | CR.ITP_ITS ---
General Information - General Information Admitting Diagnosis: PTCA with Stent - Education/Goals Cardiac Rehabilitation Goals: 1. Maintain the individual as the primary focus of care. 2. To improve the patient's quality of life. 3. Identification of cardiac risk factors and provide cardiac risk factor management. 4. Enhance the psychosocial status of the patient. 5. Reconditioning enough to allow the patient to resume customary activities. 6. Control symptoms of cardiac disease Scale for measuring improvement of personal goals: Enter appropriate number in Comments. 2 = Unchanged. 3 = Slightly Better. 4 = Moderate Improvement. 5 = Met my Goal Exercise - 30-day Assessment - Visit Date of Eval: 02/24/19 - 10 - Stages of Change Stages of Change:: Action - Physician Prescribed Exercise Modalities: Treadmill, Airdyne, NuStep Frequency (days/week): 3 Duration (Minutes):: 30-45 Intensity: 60-80% age predicted maximum heart rate reserve - . METs - Progression: 0.5-1.0 MET, RPE 11-14 WEEK: 6 Target Heart Rate:: 120-136 Max HR 111 - Hypertension Resting Blood Pressure:: 110/68 Peak Exercise Blood Pressure:: 166/60 - Intervention Home Exercise/Activity Goal:: Sitting Time <3 hrs/day - Education Goals:: Warm-up, RPE SANJUANITA Scale, S/S, Safe Exercise, Self-Monitoring - Exercise Program Goals Exercise Program Goals: Aerobic Activity >30 min, B/P <130/80 Nutrition - 30-Day Assessment - Program Goals Nutrition Program Goals: LDL <70. Total Cholesterol <200. HDL >45. Triglycerides <150. HgbA1C <7%. BMI <25 - Visit Date of Eval: 02/24/19 - Stages of Change Stages of Change:: Action - Weight Management Weight:: 103.873 kg - Intervention Referral to dietitian:: Yes Referral to Diabetic Clinic:: No Will attend diet classes:: Yes - Education Attended class for:: Signs & symptoms of hypoglycemia, Signs & symptoms of hyperglycemia, Relate diabetes to coronary artery disease, Healthy eating Tobacco - Initial Assessment - Program Goals Tobacco Program Goals: Complete smoking cessation. Attend education classes. Improve Knowledge Test score - Learning Barriers Learning Barriers: Ready to Learn Tobacco - 30-Day Assessment - Program Goals Tobacco Program Goals: Complete smoking cessation. Attend education classes. Improve Knowledge Test score - Stage of Change Stages of Change:: Action - Learning Barriers Learning Barriers: Participates in education - Family Support Do you have family support?: Yes - Tobacco Use Tobacco Use: Non-smoker Do you use smokeless tobacco?: No - Intervention Smoking Cessation Referral:: No Individual Education/Counseling:: No Education Schedule Given:: Yes - Education Attended class for:: Tobacco triggers, Coronary artery disease, Risk factors, Sexuality, Medical compliance, Cardiac A&P, Angina signs & symptoms Psychosocial - Initial Assess - Target Goals Target Goals: Assess presence or absence of depression. Using a valid screening tool, maximizes coping skills. Positive support system - Psychosocial Test Tool Used:: HANDS Depression Questionnaire - Assistive Devices Fall Risk Assessed:: Yes Psychosocial - 30-Day Assess - Target Goals Target Goals: Assess presence or absence of depression. Using a valid screening tool, maximizes coping skills. Positive support system - Stages of Change Stages of Change:: Action - Psychosocial Test Tool Used:: HANDS Depression Questionnaire - Intervention PS - Interventions: Yes Attend Stress Management Classes, Yes Uses Stress Management Skills, No Referral to Mental Health, No Referral to [facility] Case Management, No Referral to Physician - Education Attended classes for:: Coping techniques, Signs & symptoms of depression, Stress management, Relaxation techniques - Assistive Devices Assistive Devices:: None Fall Risk Assessed:: Yes Patient Health Questionnaire 30-Day Re-eval Assessment 1. Little interest or pleasure in doing things: More than half the days 2. Feeling down, depressed, or hopeless: Several days 3. Trouble falling or staying asleep, or sleeping too much: More than half the days 4. Feeling tired or having little energy: More than half the days 5. Poor appetite or overeating: Not at all 6. Feeling bad about yourself -- or that you are a failure or have let yourself or your family down: Several days 7. Trouble concentrating on things, such as reading the newspaper or watching television: Not at all 8. Moving or speaking so slowly that other people could have noticed. Or the opposite - being so fidgety or restless that you have been moving around a lot more than usual: Not at all 9. Thoughts that you would be better off , or of hurting yourself in some way: Not at all How difficult have these problems made it for you to do your work, take care of things at home, or get along with other people?: Not difficult at all Total Score: 8 Self-Efficacy 30-Day Re-eval Assessment We would like to know how confident you are in doing certain activities. Please select your confidence level for:: Select your confidence level for the following using the scale 1-10 where 1 is not at all confident and 10 is totally confident. Your score is the average of all 6 responses. Fatigue: How confident are you that you can keep the fatigue caused by your disease from interfering with the things you want to do? Select Number: 7 Physical Discomfort or Pain: How confident are you that you can keep the physical discomfort or pain of your disease from interfering with the things you want to do? Select Number: 8 Emotional Distress: How confident are you that you can keep the emotional distress caused by your disease from interfering with the things you want to do? Select Number: 8 Other Symptoms or Health Problems: How confident are you that you can keep other symptoms or health problems from interfering with the things you want to do? Select Number: 8 Different Tasks and Activities: How confident are you that you can do the different tasks and activities needed to manage your health condition so as to reduce your need to see a doctor? Select Number: 10 Medication: How confident are you that you can do things other than just taking medication to reduce how much your illness affects your everyday life? Select Number: 10 Total Score:: 8
[2019-02-24 13:29] VITALS: BP 110/68; BP 166/60
== END 2019-03-21 23:59 ==
LOC: CR 15:15
PROVIDERS: Family Provider Family Medicine; PCP Family Medicine
DX: I21.4 Non-ST elevation (NSTEMI) myocardial infarction (principal); E78.2 Mixed hyperlipidemia
CPT/HCPCS: 93798

== ENCOUNTER 2019-03-22 10:16 | Outpatient (RCR) | payer OTHER, SELFPAY ==
[2019-01-26 14:08] VITALS: BMI 33.0
[2019-03-22 01:31] VITALS: BP 110/68; BP 166/60
--- NOTE | 2019-03-27 08:34 | PCM.CR.ITP ---
General Information - General Information Admitting Diagnosis: PTCA with stent - Education/Goals Barriers to Learning: None Cardiac Rehabilitation Goals: 1. Maintain the individual as the primary focus of care. 2. To improve the patient's quality of life. 3. Identification of cardiac risk factors and provide cardiac risk factor management. 4. Enhance the psychosocial status of the patient. 5. Reconditioning enough to allow the patient to resume customary activities. 6. Control symptoms of cardiac disease Scale for measuring improvement of personal goals: Enter appropriate number in Comments. 2 = Unchanged. 3 = Slightly Better. 4 = Moderate Improvement. 5 = Met my Goal Exercise - 60-Day Assessment - Visit Date of Eval: 03/27/19 Session #:: 17 - Stages of Change Stages of Change:: Action - Physician Prescribed Exercise Modalities: Treadmill, Airdyne, NuStep Frequency (days/week): 3 Duration (Minutes):: 30-45 Intensity: 60-80% age predicted maximum heart rate reserve METs - Progression: 0.5-1.0 MET, RPE 11-14 WEEK: 7 Target Heart Rate:: 120-136 Max HR 111 - Hypertension Resting Blood Pressure:: 140/80 Peak Exercise Blood Pressure:: 182/70 - Intervention Home Exercise/Activity Goal:: Sitting Time <3 hrs/day - Education Goals:: Warm-up, RPE SANJUANITA Scale, S/S, Safe Exercise, Self-Monitoring - Exercise Program Goals Exercise Program Goals: Aerobic Activity >30 min, B/P <130/80 Nutrition - 60-Day Assessment - Program Goals Nutrition Program Goals: LDL <70. Total Cholesterol <200. HDL >45. Triglycerides <150. HgbA1C <7%. BMI <25 - Visit Date of Eval: 03/27/19 - Stages of Change Stages of Change:: Action - Weight Management Weight:: 224 kg - Intervention Referral to dietitian:: Yes Referral to Diabetic Clinic:: No Will attend diet classes:: Yes - Education Attended class for:: Signs & symptoms of hypoglycemia, Signs & symptoms of hyperglycemia, Relate diabetes to coronary artery disease, Healthy eating Tobacco - Initial Assessment - Program Goals Tobacco Program Goals: Complete smoking cessation. Attend education classes. Improve Knowledge Test score - Learning Barriers Learning Barriers: Ready to Learn Tobacco - 60-Day Assessment - Program Goals Tobacco Program Goals: Complete smoking cessation. Attend education classes. Improve Knowledge Test score - Stage of Change Stages of Change:: Action - Learning Barriers Learning Barriers: Participates in education - Family Support Do you have family support?: Yes - Tobacco Use Tobacco Use: Non-smoker Do you use smokeless tobacco?: No - Intervention Smoking Cessation Referral:: No Individual Education/Counseling:: No Education Schedule Given:: Yes - Education Attended class for:: Tobacco triggers, Coronary artery disease, Risk factors, Sexuality, Medical compliance, Cardiac A&P, Angina signs & symptoms Psychosocial - Initial Assess - Target Goals Target Goals: Assess presence or absence of depression. Using a valid screening tool, maximizes coping skills. Positive support system - Psychosocial Test Tool Used:: HANDS Depression Questionnaire - Assistive Devices Fall Risk Assessed:: Yes Psychosocial - 60-Day Assess - Target Goals Target Goals: Assess presence or absence of depression. Using a valid screening tool, maximizes coping skills. Positive support system - Stages of Change Stages of Change:: Action - Psychosocial Test Tool Used:: HANDS Depression Questionnaire - Intervention PS - Interventions: Yes Attend Stress Management Classes, Yes Uses Stress Management Skills, No Referral to Mental Health, No Referral to [facility] Case Management, No Referral to Physician - Education Attended classes for:: Coping techniques, Signs & symptoms of depression, Stress management, Relaxation techniques - Assistive Devices Assistive Devices:: None Fall Risk Assessed:: Yes Patient Health Questionnaire 60-Day Re-eval Assessment 1. Little interest or pleasure in doing things: More than half the days 2. Feeling down, depressed, or hopeless: Several days 3. Trouble falling or staying asleep, or sleeping too much: More than half the days 4. Feeling tired or having little energy: More than half the days 5. Poor appetite or overeating: Not at all 6. Feeling bad about yourself -- or that you are a failure or have let yourself or your family down: Several days 7. Trouble concentrating on things, such as reading the newspaper or watching television: Not at all 8. Moving or speaking so slowly that other people could have noticed. Or the opposite - being so fidgety or restless that you have been moving around a lot more than usual: Not at all 9. Thoughts that you would be better off , or of hurting yourself in some way: Not at all How difficult have these problems made it for you to do your work, take care of things at home, or get along with other people?: Not difficult at all Total Score: 8 Self-Efficacy 60-Day Re-eval Assessment We would like to know how confident you are in doing certain activities. Please select your confidence level for:: Select your confidence level for the following using the scale 1-10 where 1 is not at all confident and 10 is totally confident. Your score is the average of all 6 responses. Fatigue: How confident are you that you can keep the fatigue caused by your disease from interfering with the things you want to do? Select Number: 7 Physical Discomfort or Pain: How confident are you that you can keep the physical discomfort or pain of your disease from interfering with the things you want to do? Select Number: 8 Emotional Distress: How confident are you that you can keep the emotional distress caused by your disease from interfering with the things you want to do? Select Number: 8 Other Symptoms or Health Problems: How confident are you that you can keep other symptoms or health problems from interfering with the things you want to do? Select Number: 8 Different Tasks and Activities: How confident are you that you can do the different tasks and activities needed to manage your health condition so as to reduce your need to see a doctor? Select Number: 10 Medication: How confident are you that you can do things other than just taking medication to reduce how much your illness affects your everyday life? Select Number: 10 Total Score:: 8
[2019-03-27 08:39] VITALS: BP 140/80; BP 182/70
== END 2019-04-21 23:59 ==
LOC: CR 10:16
PROVIDERS: Family Provider Family Medicine; PCP Family Medicine
DX: I21.4 Non-ST elevation (NSTEMI) myocardial infarction (principal); E78.2 Mixed hyperlipidemia
CPT/HCPCS: 93798

== ENCOUNTER → 2019-10-06 07:23 | Outpatient (CLI) | payer OTHER, SELFPAY ==
[2019-01-26 14:08] VITALS: BMI 33.0
[2019-10-06 08:31] LABS: AST(SGOT) 26 U/L (15-37); Alanine Aminotransfer ALT/SGPT 40 U/L (16-61); Albumin, Serum 3.7 g/dL (3.2-5.0); Alkaline Phosphatase 84 U/L (45-117); Anion Gap 6 (5-15); BUN 18 mg/dL (7-18); BUN/Creat Ratio 17.6 RATIO (10-20); Bilirubin, Direct 0.25 mg/dL (0.00-0.30); Calcium,Total 8.7 mg/dL (8.5-10.1); Chloride 107 mmol/L (98-107); Cholesterol 119 mg/dL (200); Creatinine, Serum 1.02 mg/dL (0.70-1.30); EST Glomerular Filtration Rate 79 mL/min (>60); Est Glom Filt Rate - Afr Amer 95 mL/min (>60); Globulin 3.6 g/dL (2.2-4.2); Glucose 102 mg/dL (74-106); High Density Lipoprotein 51 mg/dL; Lipase 113 U/L (73-393); Potassium 4.2 mmol/L (3.5-5.1); Protein, Total 7.3 g/dL (6.4-8.2); Sodium Level 139 mmol/L (136-145); Triglycerides 134 mg/dL; Very Low Density Lipoprotein 27 mg/dL (5-40)
== END ==
PROVIDERS: Family Provider Family Medicine; PCP Family Medicine; Referring Provider Internal Medicine Cardiovascular Disease; Visit Provider Internal Medicine Cardiovascular Disease
DX: I25.10 Atherosclerotic heart disease of native coronary artery without angina pectoris (principal); R10.11 Right upper quadrant pain; E78.00 Pure hypercholesterolemia, unspecified
CPT/HCPCS: 36415; 80053; 80061; 82248; 83690

== ENCOUNTER → 2020-01-26 05:58 | Outpatient (CLI) | payer OTHER, SELFPAY ==
[2019-10-06 10:25] VITALS: BMI 32.4
--- NOTE | 2020-01-26 15:11 | STRESSREP ---
Stress Test Report Exercise myocardial perfusion stress test. 59-year-old man with a history of coronary artery disease status post multivessel angioplasty and stenting. Stress protocol: Resting EKG demonstrates normal sinus rhythm with a rate of 57 bpm normal intervals are noted resting blood pressures 138/74 mmHg. The patient exercised according to the regular Abundio protocol for a total duration of 10 minutes. The maximum heart rate attained was 139 bpm which was 87% of maximum predicted heart rate the maximum workload was 11.7 metabolic equivalents. Patient maintained sinus rhythm throughout the recording. At rest there were no ST changes noted to suggest ischemia at peak exercise there was approximately [address] depression noted in leads II, III and aVF and 1.[address] depression noted in V5 and V6. The above is suggestive of ischemia. There was some persistence of the ST depression noted during recovery albeit with mildly upsloping changes. Patient did experience mild dyspnea but no obvious chest pain. The resting blood pressure was 138/74 with a peak blood pressure 160/72 mmHg. No arrhythmias were noted. Myocardial perfusion protocol. 14.4 mCi of technetium 99m sestamibi was injected at rest. The patient exercised according to regular Abundio protocol for a total duration of 10 minutes. At peak exercise 44.1 mCi of technetium 99m sestamibi was injected stress images were obtained stress and rest images were reconstructed and compared with the short axis vertical long horizontal long axis. Gated images were also obtained. Perfusion SPECT analysis: Review of the images demonstrate normal uptake of tracer noted in all areas of the myocardium on the stress and resting images. No obvious areas of reversibility are noted suggest ischemia. No previous infarct is noted. Gated SPECT analysis: The gated ejection fraction is noted to be 68%. Conclusion: Normal exercise myocardial perfusion stress test with no nuclear images suggestive of ischemia. EKG changes suggestive of ischemia at a high workload. Preserved ejection fraction.
== END ==
PROVIDERS: PCP Family Medicine; Referring Provider Nurse Practitioner Family; Visit Provider Nurse Practitioner Family
DX: I25.10 Atherosclerotic heart disease of native coronary artery without angina pectoris (principal); I10 Essential (primary) hypertension; I25.2 Old myocardial infarction; Z95.5 Presence of coronary angioplasty implant and graft
CPT/HCPCS: 78452; 93017; A9500; A4216

== ENCOUNTER → 2020-02-01 14:00 | Outpatient (CLI) | payer OTHER, SELFPAY ==
[2019-10-06 10:25] VITALS: BMI 32.4
[2020-02-01 15:28] LABS: Absolute Lymphocyte Count 2.25 X10^3/uL (0.83-4.51); Absolute Neutrophil Count 4.8 X10^3/uL (2.0-7.7); Basophil# 0.04 X10^3/uL; Basophil% 0.5 % (0-1); Eosinophil# 0.12 X10^3/uL; Eosinophils% 1.5 % (0-5); Hematocrit 45.7 % (40-54); Hemoglobin 15.2 g/dL (13.0-16.5); Lymphocyte # 2.25 X10^3/ul (4.0); Mean Corp Hgb Conc 33.3 g/dL (32-36); Mean Corpuscular Hgb 31.3 pg (27.0-32.0); Mean Platelet Vol. 10.8 fl (6.2-12.0); Monocyte# 0.74 X10^3/uL; Monocyte% 9.2 % (0-10); NRBC Flagged by Analyzer 0 % (0-5); Neutrophil # 4.84 X10^3/uL (2.7-7.7); Neutrophil % 60.2 % (47-70); Platelet Count 217 K/mm3 (150-450); RBC Distribution Width CV 12.3 % (11.6-14.6); RBC Distribution Width SD 42.5 fl (35.1-43.9); Red Blood Count 4.86 M/mm3 (4.6-6.2)
[2020-02-01 15:45] LABS: Anion Gap 6 (5-15); BUN 17 mg/dL (7-18); BUN/Creat Ratio 14.9 RATIO (10-20); Calcium,Total 8.6 mg/dL (8.5-10.1); Chloride 106 mmol/L (98-107); Creatinine, Serum 1.14 mg/dL (0.70-1.30); EST Glomerular Filtration Rate 69 mL/min (>60); Est Glom Filt Rate - Afr Amer 84 mL/min (>60); Glucose 95 mg/dL (74-106); Potassium 4.3 mmol/L (3.5-5.1); Sodium Level 141 mmol/L (136-145)
== END ==
PROVIDERS: PCP Family Medicine; Referring Provider Internal Medicine Cardiovascular Disease; Visit Provider Internal Medicine Cardiovascular Disease
DX: I25.10 Atherosclerotic heart disease of native coronary artery without angina pectoris (principal); Z95.5 Presence of coronary angioplasty implant and graft; I10 Essential (primary) hypertension
CPT/HCPCS: 36415; 80048; 85025

== ENCOUNTER → 2020-02-07 08:00 | Outpatient (CLI) | payer OTHER, SELFPAY ==
[2019-10-06 10:25] VITALS: BMI 32.4
--- NOTE | 2020-02-01 14:20 | RAD_ITS ---
STUDY: X-RAY CHEST REASON FOR EXAM: Male, 59 years old. ABNORMAL STRESS TEST, NO CURRENT CHEST COMPLAINTS PER PT, HAVING HEART CATH NEXT WEEK TECHNIQUE: PA and lateral views of the chest. COMPARISON: 12/31/2018. FINDINGS: Cardiac silhouette unremarkable. Pulmonary vascularity unremarkable. Aorta unremarkable. No focal patchy airspace opacities. No pleural effusions. Upper abdomen unremarkable. Osseous structures intact. No pneumothorax. RAD/Chest PA and Lateral IMPRESSION: No acute cardiopulmonary findings Electronically Signed: Gerard Ware DO at 9:19 EDT Tel , Service support ,
[2020-02-06 07:34] VITALS: BMI 32.4
== END ==
PROVIDERS: PCP Family Medicine; Referring Provider Internal Medicine Cardiovascular Disease; Visit Provider Internal Medicine Cardiovascular Disease
DX: I25.10 Atherosclerotic heart disease of native coronary artery without angina pectoris (principal); I10 Essential (primary) hypertension; Z95.5 Presence of coronary angioplasty implant and graft
CPT/HCPCS: 71046

== ENCOUNTER → 2020-08-02 09:03 | Outpatient (CLI) | payer OTHER, SELFPAY ==
[2020-04-19 14:28] VITALS: BMI 32.4
[2020-08-02 09:51] LABS: AST(SGOT) 20 U/L (15-37); Alanine Aminotransfer ALT/SGPT 38 U/L (16-61); Albumin, Serum 3.6 g/dL (3.2-5.0); Alkaline Phosphatase 89 U/L (45-117); Bilirubin, Direct 0.33 mg/dL (0.00-0.30); Cholesterol 104 mg/dL (200); Globulin 3.6 g/dL (2.2-4.2); High Density Lipoprotein 47 mg/dL; Protein, Total 7.2 g/dL (6.4-8.2); Triglycerides 115 mg/dL; Very Low Density Lipoprotein 23 mg/dL (5-40)
== END ==
PROVIDERS: PCP Family Medicine; Referring Provider Physician Assistant Medical; Visit Provider Physician Assistant Medical
DX: I10 Essential (primary) hypertension (principal); I25.10 Atherosclerotic heart disease of native coronary artery without angina pectoris
CPT/HCPCS: 36415; 80061; 80076

== ENCOUNTER → 2021-02-22 07:41 | Outpatient (CLI) | payer OTHER, SELFPAY ==
[2020-08-02 09:22] VITALS: BMI 32.5
[2021-02-22 08:48] LABS: AST(SGOT) 21 U/L (15-37); Alanine Aminotransfer ALT/SGPT 46 U/L (16-61); Albumin, Serum 3.5 g/dL (3.2-5.0); Alkaline Phosphatase 88 U/L (45-117); Bilirubin, Direct 0.22 mg/dL (0.00-0.30); Cholesterol 110 mg/dL (200); Globulin 3.6 g/dL (2.2-4.2); High Density Lipoprotein 50 mg/dL; Protein, Total 7.1 g/dL (6.4-8.2); Triglycerides 120 mg/dL; Very Low Density Lipoprotein 24 mg/dL (5-40)
[2021-02-22 08:50] LABS: Glucose 100 mg/dL (74-106); PSA,Total - Annual Screen 3.63 ng/mL (0.00-4.00)
== END ==
PROVIDERS: Internal Medicine Cardiovascular Disease; PCP Family Medicine; Referring Provider Family Medicine; Visit Provider Family Medicine
DX: E78.00 Pure hypercholesterolemia, unspecified (principal); I25.10 Atherosclerotic heart disease of native coronary artery without angina pectoris; Z12.5 Encounter for screening for malignant neoplasm of prostate; Z13.1 Encounter for screening for diabetes mellitus
CPT/HCPCS: 36415; 80061; 80076; 82947; 84153; G0103

== ENCOUNTER → 2022-10-05 | Outpatient (CLI) | payer BC, SELFPAY ==
[2022-10-05 12:45] LABS: Anion Gap 6 (5-15); BUN 18 mg/dL (7-18); BUN/Creat Ratio 18.4 RATIO (10-20); Calcium,Total 8.7 mg/dL (8.5-10.1); Chloride 104 mmol/L (98-107); Creatinine, Serum 0.98 mg/dL (0.70-1.30); EST Glomerular Filtration Rate 82 mL/min (>60); Est Glom Filt Rate - Afr Amer 99 mL/min (>60); Glucose 82 mg/dL (74-106); Potassium 4.2 mmol/L (3.5-5.1); Sodium Level 138 mmol/L (136-145)
== END | disposition home or self-care (01) ==
PROVIDERS: Nurse Practitioner Family; Visit Provider Internal Medicine Cardiovascular Disease
DX: E87.5 Hyperkalemia (principal)
CPT/HCPCS: 36415; 80048

== ENCOUNTER → 2023-09-20 | Outpatient (CLI) | payer BC, SELFPAY ==
[2023-09-20 09:57] LABS: Absolute Lymphocyte Count 1.95 X10^3/uL (0.83-4.51); Absolute Neutrophil Count 5.2 X10^3/uL (2.0-7.7); Basophil# 0.06 X10^3/uL; Basophil% 0.7 % (0-1); Eosinophil# 0.29 X10^3/uL; Eosinophils% 3.4 % (0-5); Hematocrit 43.7 % (40-54); Hemoglobin 13.9 g/dL (13.0-16.5); Lymphocyte # 1.95 X10^3/ul (0.83-4.51); Lymphocyte % 23.1 % (19-41); Mean Corp Hgb Conc 31.8 g/dL (32-36); Mean Corpuscular Volume 94.2 fL (80-94); Mean Platelet Vol. 10.6 fl (6.2-12.0); Monocyte# 0.86 X10^3/uL; Monocyte% 10.2 % (0-10); NRBC Flagged by Analyzer 0 % (0-5); Neutrophil # 5.24 X10^3/uL (2.7-7.7); Neutrophil % 62.2 % (47-70); Platelet Count 216 K/mm3 (150-450); RBC Distribution Width CV 13.2 % (11.6-14.6); RBC Distribution Width SD 45.5 fl (35.1-43.9); Red Blood Count 4.64 M/mm3 (4.6-6.2); White Blood Count 8.4 K/mm3 (4.4-11.0)
[2023-09-20 10:35] LABS: AST(SGOT) 28 U/L (15-37); Alanine Aminotransfer ALT/SGPT 57 U/L (16-61); Albumin, Serum 3.1 g/dL (3.2-5.0); Alkaline Phosphatase 81 U/L (45-117); Anion Gap 5 (5-15); BUN 15 mg/dL (7-18); BUN/Creat Ratio 16.4 RATIO (10-20); Bilirubin, Direct 0.29 mg/dL (0.00-0.30); Calcium,Total 8.2 mg/dL (8.5-10.1); Chloride 107 mmol/L (98-107); Cholesterol 86 mg/dL (200); Creatinine, Serum 0.92 mg/dL (0.70-1.30); EST Glomerular Filtration Rate 88 mL/min (>60); Est Glom Filt Rate - Afr Amer 107 mL/min (>60); Globulin 3.7 g/dL (2.2-4.2); Glucose 101 mg/dL (74-106); High Density Lipoprotein 44 mg/dL; Potassium 4.1 mmol/L (3.5-5.1); Protein, Total 6.8 g/dL (6.4-8.2); Sodium Level 137 mmol/L (136-145); Thyroid Stim Hormone (TSH) 0.67 uIU/mL (0.358-3.74); Triglycerides 104 mg/dL; Very Low Density Lipoprotein 21 mg/dL (5-40)
== END | disposition home or self-care (01) ==
LOC: LAB 09:24
PROVIDERS: Referring Provider Nurse Practitioner Gerontology; Visit Provider Nurse Practitioner Gerontology
DX: Z95.5 Presence of coronary angioplasty implant and graft (principal); R53.83 Other fatigue
CPT/HCPCS: 36415; 80048; 80061; 80076; 84443; 85025

== ENCOUNTER → 2023-09-28 | Outpatient (CLI) | payer BC, SELFPAY ==
--- NOTE | 2023-09-28 15:17 | STRESSREP_ITS ---
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 The baseline ECG demonstrated normal sinus rhythm. The peak exercise ECG demonstrated [about 1 to [address] depressions in the inferior and lateral leads]. EKG during recovery revealed return of ST segments to baseline [There were no cardiac dysrhythmias pretest, during exercise, or recovery]. The functional capacity was considered excellent for age. There was mild chest pressure at peak exertion. The examination was discontinued secondary to dyspnea, left hip pain. Impression: 1. Sensitivity of the test is slightly decreased due to the inability to reach 85% of maximal age-predicted heart rate 2. Stress test is positive for exercise-induced EKG changes of ischemia 3. The test test is positive for exercise-induced chest pain 4. Functional capacity is excellent for age 5. Nuclear images pending Myocardial perfusion imaging study: Technique: The patient was injected with 14.3 mCi of technetium 99m Cardiolite and subsequently rest SPECT Cardiolite nuclear imaging was obtained in the horizontal long, vertical long, and short axis views. The patient exercised on a Abundio protocol. Please see above for details. The patient was injected with 44.1 mCi of technetium 99m Cardiolite and subsequently stress SPECT Cardiolite nuclear imaging was obtained in the horizontal long, vertical long, and short axis views. A gated Cardiolite study at peak stress was obtained. Interpretation: Rest and stress SPECT Cardiolite nuclear imaging status post realignment, normalization, and attenuation correction, demonstrates no evidence of significant ischemia or infarction. The gated Cardiolite study demonstrates no significant regional wall motion abnormalities. The reported LVEF is greater than 70%. Impression: 1. There is no evidence of significant ischemia or infarction. Please see above for the details regarding EKG portion of the test. 2. The gated Cardiolite study reports an LVEF of greater than 70%. This note was generated with [employer] software. It may contain incorrect words, spelling, and punctuation that were not noted in checking the note before signing.
== END | disposition home or self-care (01) ==
PROVIDERS: Referring Provider Nurse Practitioner Gerontology; Visit Provider Nurse Practitioner Gerontology
DX: Z95.5 Presence of coronary angioplasty implant and graft (principal)
CPT/HCPCS: 78452; 93017; A9500; A4216

== ENCOUNTER 2023-10-07 08:35 | Day surgery (SDC) | payer BC, SELFPAY ==
--- NOTE | 2023-10-05 10:56 | RAD_ITS ---
STUDY: X-RAY CHEST REASON FOR EXAM: Male, 63 years old. Abnormal stress test TECHNIQUE: Frontal and lateral views of the chest. COMPARISON: February 01, 2020 FINDINGS: The lungs are clear and expanded. There is no demonstrated pleural abnormality. Normal size heart. Normal mediastinum and jose m. Normal visualized pulmonary arteries. Normal visualized aortic arch and descending thoracic aorta. Normal visualized thoracic spine. Normal visualized ribs, clavicles, and shoulders. There is no demonstrated abnormality of the visualized soft tissue structures of the upper abdomen. RAD/Chest PA and Lateral IMPRESSION: Normal x-ray examination of the chest. Electronically Signed: Barry Feldman MD at 22:18 EST ,
[2023-10-06 14:09] VITALS: BMI 33.3
--- NOTE | 2023-10-07 11:41 | PRO.PCM_ITS ---
Procedure Report Date of Procedure: 10/07/23 Procedure performed; 1. Low-dose sedation 2. Selective left coronary angiography 3. Selective right cholangiography 4. Measurement of LVEDP 5. Left ventriculogram 6. Pullback pressure 7. Placement of TR band to close right radial artery arteriotomy site. Consent risk and benefits procedure explained detail patient elected to proceed informed consent obtained. Preprocedure diagnosis this 63-year-old patient scheduled as an elective cardiac catheterization As he has stress test which showed change in the EKG and symptoms of chest pain however the nuclear images did not show any reversible ischemia This patient has multiple coronary artery stents including the mid LAD, large proximal diagonal, OM 2 as well as a large RCA stents. Procedure in detail; Patient brought to the [employer] in fasting state Right radial artery area prepped and draped in the usual sterile fashion Local anesthetic infiltrated in the right radial artery area A 6 Cymraes sheath placed in the right radial artery. Then we will proceed with a diagnostic catheter which is a 5 Cymraes JL 3 5 with a Glidewire. Advanced Yanna cannulated the left main without difficulty multiple views of the left coronary system were obtained following this catheter exchanged for 5 Cymraes JR4 selective angiographic right Cholestin were obtained following this catheter exchanged for a 5 Cymraes pigtail catheter elevated Gram stain's radiographic projection Following this all angiographic view of the study Hemodynamics; 1. LVEDP measured 80 mmHg 2. There is no systolic gradient across aortic valve 3. LV systolic function is within normal exam with ejection fraction of around 60% No mitral regurgitation Coronary angiography; Left main is normal angiographically bifurcating to LAD and left circumflex 2. Proximal left anterior descending had calcification which is diffuse calcified proximal to mid LAD Patency of the mid LAD stent is noted LAD is not a large vessel it does not reach all the way to the apex and also on the distal part of the LAD there was bridging noted High-grade lesion involving the very septal branch which is subtotal around 99% Large diagonal with the patency of the proximal D1 stent noted Left circumflex the second OM branch had patency of the stent The first OM have a small vessel with diffuse proximal around 70% which was left alone. 4. RCA is large dominant with patency of the stent in the proximal RCA RCA bifurcating into a PDA and posterolateral there with a lesion at the ostium of the RPDA which is around 30% Conclusion recommendation this patient has a patency of the stents of the LAD diagonal circumflex and RCA has multiple coronary artery stents There is a lesion on the pheresed OM branch which was left alone as it is a small vessel. 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 Kiran Gonzalez MD,[facility]
== END 2023-10-07 13:00 | disposition home or self-care (01) ==
PROVIDERS: Referring Provider Internal Medicine Interventional Cardiology; Visit Provider Internal Medicine Interventional Cardiology
DX: I25.10 Atherosclerotic heart disease of native coronary artery without angina pectoris (principal); Z95.5 Presence of coronary angioplasty implant and graft; E66.9 Obesity, unspecified; I10 Essential (primary) hypertension; Z79.82 Long term (current) use of aspirin; Z79.899 Other long term (current) drug therapy
CPT/HCPCS: 71046; 93458; 99152; 99153; J7040; Q9967; C1769; C1894

== ENCOUNTER → 2025-09-24 | Outpatient (CLI) | payer BC, SELFPAY ==
--- NOTE | 2025-09-24 14:10 | STRESSREP_ITS ---
Stress Test Report
--- NOTE | 2025-09-24 14:10 | STRESSREP ---
Stress Test Report Date: 09/24/2025 Procedure: Exercise tolerance test Indications: Coronary artery disease Consent: Per the patient Procedure: The patient exercised on a Abundio protocol for 8 minutes and 1 second achieving a peak heart rate of 122 bpm (79% predicted maximal heart rate) with a peak blood pressure 142/68 mmHg and a peak MET capacity of approximately 10.1 MET's. The baseline ECG demonstrated sinus rhythm with nonspecific ST changes. The peak exercise ECG showed rate related right bundle branch block. ST segment depression in V3 V4 and V5 that may suggest ischemia. There were no cardiac dysrhythmias pretest, during exercise, or recovery. The functional capacity was considered good. The patient had no complaints of chest discomfort during exercise or recovery. The examination was discontinued secondary to fatigue and leg discomfort. Impression: 1. 79% maximum predicted heart rate achieved. Exercise discontinued secondary to leg discomfort 2. Peak exercise ECG with rate related right bundle branch block. ST depressions in anterior leads suggestive of ischemia. However specificity may be decreased with rate related right bundle block 3. There were no cardiac dysrhythmias during exercise or recovery This note was generated with [employer] software. It may contain incorrect words, spelling, and punctuation that were not noted in checking the note before signing.
== END | disposition home or self-care (01) ==
PROVIDERS: PCP Family Medicine; Referring Provider Nurse Practitioner Family; Visit Provider Nurse Practitioner Family
DX: Z02.4 Encounter for examination for driving license (principal); Z95.5 Presence of coronary angioplasty implant and graft; I10 Essential (primary) hypertension; E66.812 Obesity, class 2; E66.09 Other obesity due to excess calories; Z68.35 Body mass index [BMI] 35.0-35.9, adult
CPT/HCPCS: 93017